=== PATIENT | male | born 1970 | race Two or more races ===

== ENCOUNTER 2016-08-19 17:17 | Emergency (ER) | payer MEDICARE, MEDICAID ==
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
[2016-08-19] MEDS ORDERED: HYDROmorphone 1 mg/mL 1mL Syr IVP STA (18:07)
[2016-08-19 18:22] LABS: % BASOPHILS 0.2 % (0.0-2.0); % EOSINOPHILS 0.2 % (0.0-5.0); % MONOCYTES 11.9 % (2.0-10.0); % NEUTROPHILS 64.7 % (40.0-80.0); HEMATOCRIT 38.9 % (39.0-49.0); HEMOGLOBIN 13.3 gm/dL (13.2-17.3); MEAN CELL VOLUME 81.6 fl (80-99); MEAN CORPUSCULAR HEMOGLOBIN 27.8 pg (26.0-30.0); MEAN CORPUSCULAR HGB CONC 34.1 pg (28.0-36.0); MEAN PLATELET VOLUME 7.2 fl; NEUTROPHILE ABSOLUTE 2.7 Th/cmm (1.8-8.0); PLATELET COUNT 182 Th/cmm (150-400); RED BLOOD COUNT 4.77 Mil/cmm (4.30-5.70); RED CELL DISTRIBUTION WIDTH 17.1 % (11.5-20.0); WHITE BLOOD COUNT 4.1 Th/cmm (4.8-10.8)
[2016-08-19] MEDS ORDERED: HYDROmorphone 1 mg/mL 1mL Syr ONE (18:27)
[2016-08-19 18:39] LABS: ALB/GLOB RATIO 1.1 (1.0-1.8); ALKALINE PHOSPHATASE 101 U/L (34-104); ANION GAP 8.5 (7.0-16.0); BILIRUBIN,TOTAL 0.4 mg/dL (0.3-1.0); BUN - UREA NITROGEN 20 mg/dL (7-25); BUN/CREATININE RATIO 18.2; CALCIUM SERUM 9.6 mg/dL (8.6-10.3); CARBON DIOXIDE 26.1 mEq/L (21.0-31.0); CHLORIDE 104 mEq/L (98-107); CREATININE - SERUM 1.1 mg/dL (0.7-1.3); GLUCOSE 80 mg/dL (70-105); POTASSIUM SERUM 3.6 mEq/L (3.5-5.1); SGOT 18 U/L (13-39); SGPT/ALT 18 U/L (7-52); SODIUM SERUM 135 mEq/L (136-145)
--- NOTE | 2016-08-20 16:45 | Diagnostic Imaging Report ---
Portable chest x-ray History: Cough Allowing for portable technique the heart size is normal. No focal pulmonary parenchymal processes. No hilar or mediastinal abnormalities. Impression: No acute abnormalities.
--- NOTE | 2016-08-20 16:50 | Diagnostic Imaging Report ---
Left humerus (3 views) HISTORY: Pain, prior surgery The exam demonstrates an orthopedic fixation plate and screws traversing the distal shaft humerus. Findings are associated with a transverse fracture with incomplete bony a new. Callus formation noted. IMPRESSION: 1. Surgical fixation associated with a fracture of the distal humerus shaft with incomplete bony union.
== END 2016-08-19 21:20 | disposition home or self-care (01) ==
LOC: ER 17:17
DX: G89.4 Chronic pain syndrome (principal); J20.9 Acute bronchitis, unspecified
CPT/HCPCS: 36415-UA; 71010-TC; 73060-TC-LT; 80053-TC; 85025-TC; 96374; J1170

== ENCOUNTER 2016-10-26 12:39 | Emergency (ER) | payer MEDICARE, MEDICAID ==
[2016-10-26 13:11] VITALS: BP 109/53
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
--- NOTE | 2016-10-26 13:37 | Diagnostic Imaging Report ---
Left shoulder 3 views Indication: Trauma Comparison: Left humerus x-rays on 08/19/2016 Findings: There is evidence of previous fracture fixation of the left midhumerus with interval surrounding callus formation. No evidence of an acute fracture or significant focal soft tissue swelling. Limited evaluation of the hardware demonstrates no gross hardware loosening. Mild degenerative changes are noted. Impression: Evidence of previous fracture fixation of the left humerus with surrounding healing and callus formation. No acute fracture is identified. Consider additional dedicated left humerus views, if indicated. In the setting of trauma, if clinical symptoms persist and there is continued concern for an occult fracture, follow up exams in 5-7 days is suggested.
== END 2016-10-26 13:30 | disposition home or self-care (01) ==
LOC: ER 12:39
DX: S40.012A Contusion of left shoulder, initial encounter (principal); W05.0XXA Fall from non-moving wheelchair, initial encounter; Y93.89 Activity, other specified; Y92.89 Other specified places as the place of occurrence of the external cause; Y99.8 Other external cause status
CPT/HCPCS: 73030-TC-LT; Z7502

== ENCOUNTER 2017-03-16 22:42 | Emergency (ER) | payer MEDICARE, MEDICAID ==
[2017-03-16 23:18] LABS: % BASOPHILS 0.8 % (0.0-2.0); % LYMPHOCYTES 37.6 % (20.0-50.0); % NEUTROPHILS 51.6 % (40.0-80.0); HEMATOCRIT 41.9 % (39.0-49.0); HEMOGLOBIN 14.1 gm/dL (13.2-17.3); MEAN CELL VOLUME 85.2 fl (80-99); MEAN CORPUSCULAR HEMOGLOBIN 28.6 pg (26.0-30.0); MEAN CORPUSCULAR HGB CONC 33.5 pg (28.0-36.0); MEAN PLATELET VOLUME 7.3 fl; NEUTROPHILE ABSOLUTE 3.3 Th/cmm (1.8-8.0); PLATELET COUNT 207 Th/cmm (150-400); RED BLOOD COUNT 4.92 Mil/cmm (4.30-5.70); RED CELL DISTRIBUTION WIDTH 14.3 % (11.5-20.0); WHITE BLOOD COUNT 6.5 Th/cmm (4.8-10.8)
[2017-03-16 23:36] LABS: ALB/GLOB RATIO 1.6 (1.0-1.8); ALKALINE PHOSPHATASE 97 U/L (34-104); ANION GAP 8.3 (7.0-16.0); BILIRUBIN,TOTAL 0.4 mg/dL (0.3-1.0); BUN - UREA NITROGEN 14 mg/dL (7-25); BUN/CREATININE RATIO 12.7; CALCIUM SERUM 9.3 mg/dL (8.6-10.3); CARBON DIOXIDE 23.5 mEq/L (21.0-31.0); CHLORIDE 104 mEq/L (98-107); CREATININE - SERUM 1.1 mg/dL (0.7-1.3); GLUCOSE 98 mg/dL (70-105); POTASSIUM SERUM 3.8 mEq/L (3.5-5.1); SGOT 20 U/L (13-39); SGPT/ALT 28 U/L (7-52); SODIUM SERUM 132 mEq/L (136-145)
[2017-03-16 23:56] LABS: URINE COLOR YELLOW
[2017-03-16 23:57] LABS: URINE BACTERIA FEW /hpf (NONE SEEN); URINE BILIRUBIN NEGATIVE (NEGATIVE); URINE BLOOD NEGATIVE (NEGATIVE); URINE EPITHELIAL CELLS MODERATE /lpf (FEW); URINE GLUCOSE (UA) NEGATIVE (NEGATIVE); URINE KETONE NEGATIVE (NEGATIVE); URINE PROTEIN NEGATIVE (NEGATIVE); URINE RBC 0-2 /hpf (0-5); URINE WBC 0-2 /hpf (0-5)
[2017-03-17 00:05] LABS: AMPHETAMINE URINE NEGATIVE (NEGATIVE); BARBITURATES URINE NEGATIVE (NEGATIVE); METHADONE URINE NEGATIVE (NEGATIVE)
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
== END 2017-03-17 00:15 | disposition home or self-care (01) ==
LOC: ER 22:42
DX: K52.9 Noninfective gastroenteritis and colitis, unspecified (principal); F17.200 Nicotine dependence, unspecified, uncomplicated
CPT/HCPCS: 36415-UA; 80053-TC; 80307; 80320-TC; 81001-TC; 84443-TC; 84484-TC; 85025-TC; Z7502

== ENCOUNTER 2017-06-03 16:50 | Emergency (ER) | payer MEDICARE, MEDICAID | END 2017-06-03 18:00 | disposition left against medical advice (07) | LOC: ER 16:50 | DX: R06.00 Dyspnea, unspecified (principal) ==

== ENCOUNTER 2017-09-12 12:40 | Emergency (ER) | payer MEDICARE, MEDICAID ==
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
== END 2017-09-12 13:30 | disposition home or self-care (01) ==
LOC: ER 12:40
DX: N34.2 Other urethritis (principal)
CPT/HCPCS: Z7502

== ENCOUNTER 2017-09-17 20:51 | Inpatient (IN) | payer MEDICARE, MEDICAID ==
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
[2017-09-17] MEDS ORDERED: Ipratropium Neb 0.5 mg/2.5 mL UD HHN STA (21:25)
[2017-09-17] MEDS ORDERED: Ipratropium Neb 0.5 mg/2.5 mL UD HHN ONE (21:49)
[2017-09-17 21:51] LABS: % BASOPHILS 0.3 % (0.0-2.0); % EOSINOPHILS 2.4 % (0.0-5.0); % LYMPHOCYTES 15.5 % (20.0-50.0); % MONOCYTES 4.6 % (2.0-10.0); % NEUTROPHILS 77.2 % (40.0-80.0); EOSINOPHILE ABSOLUTE 0.3 Th/cmm (0.1-0.4); HEMATOCRIT 43.7 % (41.0-60); HEMOGLOBIN 15.1 gm/dL (12-16); MEAN CELL VOLUME 84.4 fl (80-99); MEAN CORPUSCULAR HEMOGLOBIN 29.2 pg (26.0-30.0); MEAN CORPUSCULAR HGB CONC 34.6 pg (28.0-36.0); MEAN PLATELET VOLUME 7.7 fl; MONOCYTE ABSOLUTE 0.6 Th/cmm (0.3-1.0); NEUTROPHILE ABSOLUTE 9.8 Th/cmm (1.8-8.0); PLATELET COUNT 260 Th/cmm (150-400); RED BLOOD COUNT 5.18 Mil/cmm (4.30-5.70)
[2017-09-17 21:57] LABS: ALB/GLOB RATIO 1.3 (1.0-1.8); ALBUMIN 4.2 gm/dL (4.2-5.5); ALKALINE PHOSPHATASE 93 U/L (34-104); ANION GAP 8.8 (7.0-16.0); BILIRUBIN,TOTAL 0.6 mg/dL (0.3-1.0); BUN - UREA NITROGEN 11 mg/dL (7-25); CALCIUM SERUM 9.6 mg/dL (8.6-10.3); CHLORIDE 102 mEq/L (98-107); GFR AFRICAN-AMERICAN > 60.0 ml/min (>90); GFR NON AFRICAN-AMERICAN > 60.0 ml/min; GLUCOSE 125 mg/dL (70-105); POTASSIUM SERUM 3.8 mEq/L (3.5-5.1); SGOT 22 U/L (13-39); SGPT/ALT 37 U/L (7-52); SODIUM SERUM 130 mEq/L (136-145); TOTAL PROTEIN,SERUM 7.5 gm/dL (6.0-8.3)
[2017-09-17 22:05] LABS: WHITE BLOOD COUNT 12.7 Th/cmm (4.8-10.8)
[2017-09-17] MEDS ORDERED: Sodium Chloride 0.9% 1,000 ML IV ONE (22:06)
[2017-09-17] MEDS ORDERED: cefTRIAXone 1 GM in Sodium Chloride 0.9% 50 ML IV ONE (22:07)
[2017-09-17] MEDS ORDERED: Azithromycin 500 MG in Sodium Chloride 0.9% 250 ML IV ONE (22:08)
[2017-09-17 22:29] LABS: ALLEN TEST Positive; pH 7.44 (7.35-7.45)
[2017-09-18] MEDS: Ipratropium Neb 0.5 mg/2.5 mL UD HHN SCH ×6 (02:47→23:14)
[2017-09-18 04:04] VITALS: BP 121/75
[2017-09-18 07:29] LABS: % BASOPHILS 0.2 % (0.0-2.0); % EOSINOPHILS 5.4 % (0.0-5.0); % LYMPHOCYTES 22.5 % (20.0-50.0); % NEUTROPHILS 62.9 % (40.0-80.0); EOSINOPHILE ABSOLUTE 0.4 Th/cmm (0.1-0.4); HEMATOCRIT 39.9 % (41.0-60); HEMOGLOBIN 13.7 gm/dL (12-16); LYMPHOCYTE ABSOLUTE 1.8 Th/cmm (1.5-3.0); MEAN CELL VOLUME 84.7 fl (80-99); MEAN CORPUSCULAR HGB CONC 34.3 pg (28.0-36.0); MEAN PLATELET VOLUME 7.9 fl; MONOCYTE ABSOLUTE 0.7 Th/cmm (0.3-1.0); NEUTROPHILE ABSOLUTE 5.1 Th/cmm (1.8-8.0); PLATELET COUNT 217 Th/cmm (150-400); RED BLOOD COUNT 4.71 Mil/cmm (4.30-5.70); RED CELL DISTRIBUTION WIDTH 15.2 % (11.5-20.0)
[2017-09-18 07:45] LABS: ALB/GLOB RATIO 1.3 (1.0-1.8); ALBUMIN 3.8 gm/dL (4.2-5.5); ALKALINE PHOSPHATASE 84 U/L (34-104); BILIRUBIN,TOTAL 0.5 mg/dL (0.3-1.0); BUN - UREA NITROGEN 11 mg/dL (7-25); CALCIUM SERUM 9.2 mg/dL (8.6-10.3); CHLORIDE 107 mEq/L (98-107); CREATININE - SERUM 0.9 mg/dL (0.7-1.3); GFR AFRICAN-AMERICAN > 60.0 ml/min (>90); GFR NON AFRICAN-AMERICAN > 60.0 ml/min; GLUCOSE 105 mg/dL (70-105); SGOT 17 U/L (13-39); SGPT/ALT 30 U/L (7-52); SODIUM SERUM 136 mEq/L (136-145); TOTAL PROTEIN,SERUM 6.8 gm/dL (6.0-8.3)
--- NOTE | 2017-09-18 08:00 | Diagnostic Imaging Report ---
CHEST X-RAY: AP view INDICATION: Cough COMPARISON: 08/19/2016 FINDINGS: Right-sided axillary clips are noted. Mild increased interstitial lung markings are noted. There is no focal consolidation or pleural effusions The heart is normal in size. The osseous structures demonstrate no acute abnormalities. Small bone island of the right humeral head is noted IMPRESSION: Mild increased interstitial lung markings, nonspecific. No focal airspace consolidation identified. Postsurgical changes of the right axillary region.
[2017-09-18] MEDS ORDERED: Oxymetazoline 0.05% 15 mL Spray NS PRN (13:56)
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
[2017-09-18] MEDS: cefTRIAXone 2 GM in Sodium Chloride 0.9% 100 ML IV SCH (16:52)
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
[2017-09-18 19:16] LABS: INF A SCREEN NEG FOR INF A; INF B SCREEN NEG FOR INF B
[2017-09-18] MEDS: Azithromycin 500 MG in Sodium Chloride 0.9% 250 ML IV SCH (20:16)
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
[2017-09-19] MEDS: Ipratropium Neb 0.5 mg/2.5 mL UD HHN SCH ×5 (03:15→20:42)
--- NOTE | 2017-09-19 11:27 | Diagnostic Imaging Report ---
CT Chest without IV contrast HISTORY: Pneumonia COMPARISON: Chest x-ray performed on 09/17/2017. Technique: Axial images were obtained from the base of the neck to the upper abdomen without IV contrast. Reconstructions were made. Total DLP 340, CTD I 8.7 Findings: Evaluation of the mediastinum is limited due to lack of IV contrast. Few borderline prominent mediastinal lymph nodes are noted the largest to the left of the main pulmonary artery measuring 0.9 x 0.5 cm. Mild coronary artery atherosclerosis is noted. Heart size is normal. No pericardial effusion. Postsurgical changes of the right axillary region are noted. Evaluation of lung nunez demonstrate no focal consolidation or effusions. Minimal hypoventilatory atelectatic changes are noted. 3-mm nodular density is seen along the left major fissure (image 57, series 5). The upper abdomen demonstrates fatty infiltration of the liver. Minimal nonspecific bilateral perinephric inflammatory changes are noted. The osseous structures demonstrate no acute abnormalities. Mild scoliosis is noted. IMPRESSION: Minimal hypoventilatory changes of the lungs. No focal consolidation or effusions. 3 mm nodular density along the left major fissure probably due to old infectious or old inflammatory process. If indicated, follow up may be obtained Minimal coronary artery atherosclerotic vascular disease. Postsurgical changes of right axillary region, please correlate clinically. A few borderline prominent mediastinal lymph nodes, nonspecific. Hepatic steatosis.
--- NOTE | 2017-09-19 11:36 | General Progress Note ---
Subjective - Review of Systems Events since last encounter: c/o cough deneis sob ,cp Objective - Results Result Diagrams: 09/18/17 06:39 03 06:39 Recent Labs: Laboratory Last Values WBC 8.0 Th/cmm (4.8-10.8) 03 06:39 RBC 4.71 Mil/cmm (4.30-5.70) 09/18/17 06:39 Hgb 13.7 gm/dL (12-16) 09/18/17 06:39 Hct 39.9 % (41.0-60) L 09/18/17 06:39 MCV 84.7 fl (80-99) 09/18/17 06:39 MCH 29.0 pg (26.0-30.0) 09/18/17 06:39 MCHC Differential 34.3 pg (28.0-36.0) 09/18/17 06:39 RDW 15.2 % (11.5-20.0) 09/18/17 06:39 Plt Count 217 Th/cmm (150-400) 09/18/17 06:39 MPV 7.9 fl 09/18/17 06:39 Neutrophils % 62.9 % (40.0-80.0) 09/18/17 06:39 Lymphocytes % 22.5 % (20.0-50.0) 09/18/17 06:39 Monocytes % 9.0 % (2.0-10.0) 09/18/17 06:39 Eosinophils % 5.4 % (0.0-5.0) H 09/18/17 06:39 Basophils % 0.2 % (0.0-2.0) 09/18/17 06:39 Specimen Source arterial 09/17/17 21:23 Sample Site RB 09/17/17 21:23 pH 7.44 (7.35-7.45) 09/17/17 21:23 pCO2 38.0 mmHg (35.0-45.0) 09/17/17 21:23 pO2 52.0 mmHg (80.0-100.0) L 09/17/17 21:23 HCO3 26.0 mEq/L (20.0-26.0) 09/17/17 21:23 Base Excess 1.7 mEq/L (-3.0-3.0) 09/17/17 21:23 O2 Saturation 88.0 % (92.0-100.0) L 09/17/17 21:23 Guilherme Test Positive 09/17/17 21:23 Vent Rate N/A 09/17/17 21:23 Inspired O2 21 09/17/17 21:23 Tidal Volume N/A 09/17/17 21:23 PEEP N/A 09/17/17 21:23 Pressure (ins/psv/peep) N/A 09/17/17 21:23 Critical Value MM,[employer]PER 09/17/17 21:23 Sodium 136 mEq/L (136-145) 09/18/17 06:39 Potassium 4.0 mEq/L (3.5-5.1) 09/18/17 06:39 Chloride 107 mEq/L (98-107) 09/18/17 06:39 Carbon Dioxide 24.0 mEq/L (21.0-31.0) 09/18/17 06:39 Anion Gap 9.0 (7.0-16.0) 09/18/17 06:39 BUN 11 mg/dL (7-25) 09/18/17 06:39 Creatinine 0.9 mg/dL (0.7-1.3) 03 06:39 Est GFR ( Amer) > 60.0 ml/min (>90) 09/18/17 06:39 Est GFR (Non-Af Amer) > 60.0 ml/min 09/18/17 06:39 BUN/Creatinine Ratio 12.2 09/18/17 06:39 Glucose 105 mg/dL (70-105) 09/18/17 06:39 Whole Bld Lactic Acid 1.57 mmol/L (0.60-1.99) 09/17/17 21:55 Calcium 9.2 mg/dL (8.6-10.3) 09/18/17 06:39 Total Bilirubin 0.5 mg/dL (0.3-1.0) 09/18/17 06:39 AST 17 U/L (13-39) 09/18/17 06:39 ALT 30 U/L (7-52) 09/18/17 06:39 Alkaline Phosphatase 84 U/L (34-104) 09/18/17 06:39 Total Protein 6.8 gm/dL (6.0-8.3) 09/18/17 06:39 Albumin 3.8 gm/dL (4.2-5.5) L 09/18/17 06:39 Globulin 3.0 gm/dL 09/18/17 06:39 Albumin/Globulin Ratio 1.3 (1.0-1.8) 09/18/17 06:39 Influenza A (Rapid) NEG FOR INF A 09/18/17 13:45 Influenza B (Rapid) NEG FOR INF B 09/18/17 13:45 - Physical Exam Vitals and I&O: Vital Signs Temp 98.2 F 09/19/17 07:42 Pulse 104 09/19/17 08:12 Resp 18 09/19/17 08:12 BP 95/60 09/19/17 07:42 Pulse Ox 94 09/19/17 08:12 Intake & Output 09/18/17 09/19/17 09/19/17 18:59 06:59 18:59 Intake Total 1300 250 Output Total 800 Balance 500 250 Weight (lbs) 98.611 kg 97.976 kg Intake: Intake, IV Amount 100 250 Azithromycin 500 mg In 250 Sodium Chloride 0.9% 250 ml @ 250 mls/hr IV Q24HR [facility] Rx#:[id number] cefTRIAXone 2 gm In 100 Sodium Chloride 0.9% 100 ml @ 100 mls/hr IV Q24H [facility] Rx#:[id number] Oral 1200 Output: Urine 800 Other: # Bowel Movements 0 Active Medications: Current Medications Azithromycin 500 mg/ Sodium (Chloride) 250 mls @ 250 mls/hr IV Q24HR [facility] Stop: 11/17/17 20:59 Last Infusion: 09/18/17 21:20 Dose: Infused Ceftriaxone Sodium 2 gm/ (Sodium Chloride) 100 mls @ 100 mls/hr IV Q24H [facility] Stop: 11/17/17 14:59 Last Infusion: 09/18/17 17:55 Dose: Infused Ipratropium Avella (Atrovent Neb 0.5mg/2.5ml) 0.5 mg HHN Q4HRT [facility] Stop: 11/17/17 02:59 Last Admin: 09/19/17 11:15 Dose: 0.5 mg Loratadine (Claritin) 10 mg PO DAILY PRN PRN Reason: Allergy Symptoms Stop: 11/17/17 13:55 Methylprednisolone Sodium Succinate (Solu-Medrol) 60 mg IVP Q6HR KATE Stop: 11/17/17 17:59 Last Admin: 09/19/17 07:42 Dose: 60 mg Oxymetazoline HCl (Afrin) 1 spr NS Q12HR PRN PRN Reason: Nasal Congestion Stop: 10/02/17 13:55
[2017-09-19] MEDS: cefTRIAXone 2 GM in Sodium Chloride 0.9% 100 ML IV SCH (15:41)
[2017-09-19] MEDS: Hydrocodone/APAP 10 mg/325 mg Tab PO PRN (20:49)
[2017-09-19] MEDS: Azithromycin 500 MG in Sodium Chloride 0.9% 250 ML IV SCH (20:49)
[2017-09-20] MEDS: Ipratropium Neb 0.5 mg/2.5 mL UD HHN SCH ×6 (00:10→22:57)
[2017-09-20 06:02] LABS: HEMATOCRIT 42.8 % (41.0-60); HEMOGLOBIN 14.4 gm/dL (12-16); MEAN CELL VOLUME 85.8 fl (80-99); MEAN CORPUSCULAR HEMOGLOBIN 28.8 pg (26.0-30.0); MEAN CORPUSCULAR HGB CONC 33.6 pg (28.0-36.0); PLATELET COUNT 291 Th/cmm (150-400); RED BLOOD COUNT 4.99 Mil/cmm (4.30-5.70); RED CELL DISTRIBUTION WIDTH 15.3 % (11.5-20.0)
[2017-09-20 06:10] LABS: MANUAL DIFF REQUIRED? YES
[2017-09-20 06:20] LABS: ALB/GLOB RATIO 1.3 (1.0-1.8); ALBUMIN 4.1 gm/dL (4.2-5.5); ALKALINE PHOSPHATASE 87 U/L (34-104); ANION GAP 11.9 (7.0-16.0); BILIRUBIN,TOTAL 0.2 mg/dL (0.3-1.0); BUN - UREA NITROGEN 23 mg/dL (7-25); CALCIUM SERUM 9.4 mg/dL (8.6-10.3); CARBON DIOXIDE 21.1 mEq/L (21.0-31.0); CHLORIDE 106 mEq/L (98-107); CREATININE - SERUM 1.1 mg/dL (0.7-1.3); GFR AFRICAN-AMERICAN > 60.0 ml/min (>90); GFR NON AFRICAN-AMERICAN > 60.0 ml/min; GLUCOSE 254 mg/dL (70-105); SGOT 11 U/L (13-39); SGPT/ALT 27 U/L (7-52); SODIUM SERUM 135 mEq/L (136-145); TOTAL PROTEIN,SERUM 7.3 gm/dL (6.0-8.3)
[2017-09-20 06:39] LABS: BAND NEUTROPHILE 6 % (0-10); LYMPHOCYTE 12 % (20-50); MONOCYTE 4 % (2-10); NEUTROPHILS 78 % (40-80); TOTAL CELLS COUNTED 100
[2017-09-20] MEDS: Hydrocodone/APAP 10 mg/325 mg Tab PO PRN ×2 (09:50→22:15)
[2017-09-20] MEDS: cefTRIAXone 2 GM in Sodium Chloride 0.9% 100 ML IV SCH (14:29)
--- NOTE | 2017-09-20 17:48 | Internal Medicine Prog Note ---
Internal Medicine Subjective - Subjective Service Date: 09/20/17 Patient seen and examined:: with staff Patient is:: awake, verbal Patient Complaints of:: cough Per staff patient has:: no adverse event, tolerating meds Internal Medicine Objective - Results Result Diagrams: 09/20/17 05:21 09/20/17 05:21 Recent Labs: Laboratory Last Values WBC 19.0 Th/cmm (4.8-10.8) H 09/20/17 05:21 RBC 4.99 Mil/cmm (4.30-5.70) 09/20/17 05:21 Hgb 14.4 gm/dL (12-16) 09/20/17 05:21 Hct 42.8 % (41.0-60) 09/20/17 05:21 MCV 85.8 fl (80-99) 09/20/17 05:21 MCH 28.8 pg (26.0-30.0) 09/20/17 05:21 MCHC Differential 33.6 pg (28.0-36.0) 09/20/17 05:21 RDW 15.3 % (11.5-20.0) 09/20/17 05:21 Plt Count 291 Th/cmm (150-400) 09/20/17 05:21 MPV 8.0 fl 09/20/17 05:21 Neutrophils % 62.9 % (40.0-80.0) 09/18/17 06:39 Band Neutrophils % 6 % (0-10) 09/20/17 05:21 Lymphocytes % 22.5 % (20.0-50.0) 09/18/17 06:39 Monocytes % 9.0 % (2.0-10.0) 09/18/17 06:39 Eosinophils % 5.4 % (0.0-5.0) H 09/18/17 06:39 Basophils % 0.2 % (0.0-2.0) 09/18/17 06:39 Neutrophils (Manual) 78 % (40-80) 09/20/17 05:21 Lymphocytes 12 % (20-50) L 09/20/17 05:21 Monocytes 4 % (2-10) 09/20/17 05:21 Specimen Source arterial 09/17/17 21:23 Sample Site RB 09/17/17 21:23 pH 7.44 (7.35-7.45) 09/17/17 21:23 pCO2 38.0 mmHg (35.0-45.0) 09/17/17 21:23 pO2 52.0 mmHg (80.0-100.0) L 09/17/17 21:23 HCO3 26.0 mEq/L (20.0-26.0) 09/17/17 21:23 Base Excess 1.7 mEq/L (-3.0-3.0) 09/17/17 21:23 O2 Saturation 88.0 % (92.0-100.0) L 09/17/17 21:23 Guilherme Test Positive 09/17/17 21:23 Vent Rate N/A 09/17/17 21:23 Inspired O2 21 09/17/17 21:23 Tidal Volume N/A 09/17/17 21:23 PEEP N/A 09/17/17 21:23 Pressure (ins/psv/peep) N/A 09/17/17 21:23 Critical Value MM,PRODUCT MARKETING INTERN 09/17/17 21:23 Sodium 135 mEq/L (136-145) L 09/20/17 05:21 Potassium 4.0 mEq/L (3.5-5.1) 09/20/17 05:21 Chloride 106 mEq/L (98-107) 09/20/17 05:21 Carbon Dioxide 21.1 mEq/L (21.0-31.0) 09/20/17 05:21 Anion Gap 11.9 (7.0-16.0) 09/20/17 05:21 BUN 23 mg/dL (7-25) 09/20/17 05:21 Creatinine 1.1 mg/dL (0.7-1.3) 09/20/17 05:21 Est GFR ( Amer) > 60.0 ml/min (>90) 09/20/17 05:21 Est GFR (Non-Af Amer) > 60.0 ml/min 09/20/17 05:21 BUN/Creatinine Ratio 20.9 09/20/17 05:21 Glucose 254 mg/dL (70-105) H 09/20/17 05:21 Whole Bld Lactic Acid 1.57 mmol/L (0.60-1.99) 09/17/17 21:55 Calcium 9.4 mg/dL (8.6-10.3) 09/20/17 05:21 Total Bilirubin 0.2 mg/dL (0.3-1.0) L 09/20/17 05:21 AST 11 U/L (13-39) L 09/20/17 05:21 ALT 27 U/L (7-52) 09/20/17 05:21 Alkaline Phosphatase 87 U/L (34-104) 09/20/17 05:21 Total Protein 7.3 gm/dL (6.0-8.3) 09/20/17 05:21 Albumin 4.1 gm/dL (4.2-5.5) L 09/20/17 05:21 Globulin 3.2 gm/dL 09/20/17 05:21 Albumin/Globulin Ratio 1.3 (1.0-1.8) 09/20/17 05:21 Influenza A (Rapid) NEG FOR INF A 09/18/17 13:45 Influenza B (Rapid) NEG FOR INF B 09/18/17 13:45 Ur L.pneumophila Ag Negative (Negative) 09/18/17 21:10 - Physical Exam Vitals and I&O: Vital Signs Temp 97.8 F 09/20/17 16:04 Pulse 110 09/20/17 16:04 Resp 18 09/20/17 16:04 BP 110/72 09/20/17 16:04 Pulse Ox 99 09/20/17 16:04 Intake & Output 09/19/17 09/20/17 09/20/17 18:59 06:59 18:59 Intake Total 1300 100 Balance 1300 100 Weight (lbs) 216 lb Intake: Intake, IV Amount 100 100 cefTRIAXone 2 gm In 100 100 Sodium Chloride 0.9% 100 ml @ 100 mls/hr IV Q24H [facility] Rx#:[id number] Oral 1200 Active Medications: Current Medications Acetaminophen/Hydrocodone Bitart ([place] 10 Mg/325 Mg) 1 tab PO Q4H PRN PRN Reason: Pain (Moderate) Stop: 11/18/17 19:04 Last Admin: 09/20/17 09:50 Dose: 1 tab Azithromycin 500 mg/ Sodium (Chloride) 250 mls @ 250 mls/hr IV Q24HR [facility] Stop: 11/17/17 20:59 Last Admin: 09/19/17 20:49 Dose: 250 mls/hr Ceftriaxone Sodium 2 gm/ (Sodium Chloride) 100 mls @ 100 mls/hr IV Q24H [facility] Stop: 11/17/17 14:59 Last Infusion: 09/20/17 15:29 Dose: Infused Ipratropium [place] (Atrovent Neb 0.5mg/2.5ml) 0.5 mg HHN Q4HRT [facility] Stop: 11/17/17 02:59 Last Admin: 09/20/17 10:55 Dose: 0.5 mg Loratadine (Claritin) 10 mg PO DAILY PRN PRN Reason: Allergy Symptoms Stop: 11/17/17 13:55 Methylprednisolone Sodium Succinate (Solu-Medrol) 40 mg IVP Q12HR [facility] Stop: 11/19/17 20:59 Oxymetazoline HCl (Afrin) 1 spr NS Q12HR PRN PRN Reason: Nasal Congestion Stop: 10/02/17 13:55 General: alert HEENT: NC/AT, PERRLA Neck: Supple Lungs: CTAB Cardiovascular: RRR, Normal S1, Normal S2, without murmur Abdomen: soft, non-tender, non-distended Extremities: clear Neurological: alert Internal Medicine Assmt/Plan - Assessment Assessment: bronchitis leukocytosis hyponatremia possible pna left aka - Plan Plan: continue ivabx supplemental oxygen and inhalation treatments continue current orders
[2017-09-20 18:29] LABS: A1C % 5.5 % (4.0-6.0)
[2017-09-20] MEDS: Azithromycin 500 MG in Sodium Chloride 0.9% 250 ML IV SCH (22:00)
[2017-09-20] MEDS: methylPREDNISolone SS 40 mg Vial IVP SCH (22:30)
[2017-09-21] MEDS: Ipratropium Neb 0.5 mg/2.5 mL UD HHN SCH ×6 (02:23→23:06)
[2017-09-21] MEDS: Hydrocodone/APAP 10 mg/325 mg Tab PO PRN ×4 (02:44→21:31)
[2017-09-21] MEDS: methylPREDNISolone SS 40 mg Vial IVP SCH ×2 (09:11→21:30)
--- NOTE | 2017-09-21 12:14 | Infectious Disease Prog Note ---
Infectious Disease Subjective - Review of Systems Service Date: 09/21/17 Subjective: There is no new change, there is no fever. Infectious Disease Objective - Results Result Diagrams: 09/20/17 05:21 09/20/17 05:21 Recent Labs: Laboratory Last Values WBC 19.0 Th/cmm (4.8-10.8) H 09/20/17 05:21 RBC 4.99 Mil/cmm (4.30-5.70) 09/20/17 05:21 Hgb 14.4 gm/dL (12-16) 09/20/17 05:21 Hct 42.8 % (41.0-60) 09/20/17 05:21 MCV 85.8 fl (80-99) 09/20/17 05:21 MCH 28.8 pg (26.0-30.0) 09/20/17 05:21 MCHC Differential 33.6 pg (28.0-36.0) 09/20/17 05:21 RDW 15.3 % (11.5-20.0) 09/20/17 05:21 Plt Count 291 Th/cmm (150-400) 09/20/17 05:21 MPV 8.0 fl 09/20/17 05:21 Neutrophils % 62.9 % (40.0-80.0) 09/18/17 06:39 Band Neutrophils % 6 % (0-10) 09/20/17 05:21 Lymphocytes % 22.5 % (20.0-50.0) 09/18/17 06:39 Monocytes % 9.0 % (2.0-10.0) 09/18/17 06:39 Eosinophils % 5.4 % (0.0-5.0) H 09/18/17 06:39 Basophils % 0.2 % (0.0-2.0) 09/18/17 06:39 Neutrophils (Manual) 78 % (40-80) 09/20/17 05:21 Lymphocytes 12 % (20-50) L 09/20/17 05:21 Monocytes 4 % (2-10) 09/20/17 05:21 Specimen Source arterial 09/17/17 21:23 Sample Site RB 09/17/17 21:23 pH 7.44 (7.35-7.45) 09/17/17 21:23 pCO2 38.0 mmHg (35.0-45.0) 09/17/17 21:23 pO2 52.0 mmHg (80.0-100.0) L 09/17/17 21:23 HCO3 26.0 mEq/L (20.0-26.0) 09/17/17 21:23 Base Excess 1.7 mEq/L (-3.0-3.0) 09/17/17 21:23 O2 Saturation 88.0 % (92.0-100.0) L 09/17/17 21:23 Guilherme Test Positive 09/17/17 21:23 Vent Rate N/A 09/17/17 21:23 Inspired O2 21 09/17/17 21:23 Tidal Volume N/A 09/17/17 21:23 PEEP N/A 09/17/17 21:23 Pressure (ins/psv/peep) N/A 09/17/17 21:23 Critical Value MM,INSTRUMENT INSPECTOR 09/17/17 21:23 Sodium 135 mEq/L (136-145) L 09/20/17 05:21 Potassium 4.0 mEq/L (3.5-5.1) 09/20/17 05:21 Chloride 106 mEq/L (98-107) 09/20/17 05:21 Carbon Dioxide 21.1 mEq/L (21.0-31.0) 09/20/17 05:21 Anion Gap 11.9 (7.0-16.0) 09/20/17 05:21 BUN 23 mg/dL (7-25) 09/20/17 05:21 Creatinine 1.1 mg/dL (0.7-1.3) 09/20/17 05:21 Est GFR ( Amer) > 60.0 ml/min (>90) 09/20/17 05:21 Est GFR (Non-Af Amer) > 60.0 ml/min 09/20/17 05:21 BUN/Creatinine Ratio 20.9 09/20/17 05:21 Glucose 254 mg/dL (70-105) H 09/20/17 05:21 Hemoglobin A1c % 5.5 % (4.0-6.0) 09/20/17 06:10 Whole Bld Lactic Acid 1.57 mmol/L (0.60-1.99) 09/17/17 21:55 Calcium 9.4 mg/dL (8.6-10.3) 09/20/17 05:21 Total Bilirubin 0.2 mg/dL (0.3-1.0) L 09/20/17 05:21 AST 11 U/L (13-39) L 09/20/17 05:21 ALT 27 U/L (7-52) 09/20/17 05:21 Alkaline Phosphatase 87 U/L (34-104) 09/20/17 05:21 Total Protein 7.3 gm/dL (6.0-8.3) 09/20/17 05:21 Albumin 4.1 gm/dL (4.2-5.5) L 09/20/17 05:21 Globulin 3.2 gm/dL 09/20/17 05:21 Albumin/Globulin Ratio 1.3 (1.0-1.8) 09/20/17 05:21 Influenza A (Rapid) NEG FOR INF A 09/18/17 13:45 Influenza B (Rapid) NEG FOR INF B 09/18/17 13:45 Ur L.pneumophila Ag Negative (Negative) 09/18/17 21:10 - Physical Exam Vitals and I&O: Vital Signs Temp 98.4 F 09/21/17 08:00 Pulse 100 09/21/17 11:30 Resp 20 09/21/17 11:30 BP 132/86 09/21/17 08:00 Pulse Ox 92 09/21/17 11:30 Intake & Output 09/20/17 09/21/17 09/21/17 18:59 06:59 18:59 Intake Total 100 1000 Balance 100 1000 Weight (lbs) 97.976 kg Intake: Intake, IV Amount 100 cefTRIAXone 2 gm In 100 Sodium Chloride 0.9% 100 ml @ 100 mls/hr IV Q24H [facility] Rx#:[id number] Oral 1000 Active Medications: Current Medications Acetaminophen/Hydrocodone Bitart ([place] 10 Mg/325 Mg) 1 tab PO Q4H PRN PRN Reason: Pain (Moderate) Stop: 11/18/17 19:04 Last Admin: 09/21/17 09:12 Dose: 1 tab Azithromycin 500 mg/ Sodium (Chloride) 250 mls @ 250 mls/hr IV Q24HR [facility] Stop: 11/17/17 20:59 Last Admin: 09/20/17 22:00 Dose: 250 mls/hr Ceftriaxone Sodium 2 gm/ (Sodium Chloride) 100 mls @ 100 mls/hr IV Q24H [facility] Stop: 11/17/17 14:59 Last Infusion: 09/20/17 15:29 Dose: Infused Ipratropium [place] (Atrovent Neb 0.5mg/2.5ml) 0.5 mg HHN Q4HRT [facility] Stop: 11/17/17 02:59 Last Admin: 09/21/17 11:28 Dose: 0.5 mg Loratadine (Claritin) 10 mg PO DAILY PRN PRN Reason: Allergy Symptoms Stop: 11/17/17 13:55 Methylprednisolone Sodium Succinate (Solu-Medrol) 40 mg IVP Q12HR [facility] Stop: 11/19/17 20:59 Last Admin: 09/21/17 09:11 Dose: 40 mg Oxymetazoline HCl (Afrin) 1 spr NS Q12HR PRN PRN Reason: Nasal Congestion Stop: 10/02/17 13:55 General: no acute distress, well developed, well nourished HEENT: atraumatic, normocephalic, PERRLA Neck: supple, no thyromegaly, no lymphadenopathy Cardiovascular: S1S2, regular Lungs: clear to auscultation bilaterally, clear to percussion Abdomen: soft, no tender, no distended Extremities: no cyanosis, no clubbing, no edema Neurological: awake, alert, oriented, CN 2-12 intact Skin: intact Infectious Disease Assmt/Plan - Assessment Assessment: 1. Cough and shortness breath improving, likely he has bronchitis. CT scan of the chest revealed no pneumonia or infiltrate. 2. h/o HSCT. 3. h/o Lymphoma. 4. Leukocytosis. Likely 2/2 steroids. - Plan Plan: continue levaquin, will dc ceftriaxone. If leukocytosis comed to normal tomorrow, may dc antibiotics.
[2017-09-21] MEDS: cefTRIAXone 2 GM in Sodium Chloride 0.9% 100 ML IV SCH (14:17)
[2017-09-21] MEDS: Azithromycin 500 MG in Sodium Chloride 0.9% 250 ML IV SCH (21:30)
--- NOTE | 2017-09-22 00:06 | Progress Notes ---
DATE: 09/21/2017 SUBJECTIVE: The patient was seen in his room. The patient is asleep, but easily arousable, otherwise the patient appears to be in no acute distress. Denies any pain or discomfort. OBJECTIVE: HEENT: Head is atraumatic and normocephalic. Eyes: Bilateral conjunctivae are clear. Bilateral pupils are equally round and reactive. NECK: Supple. No JVD. CARDIOVASCULAR: S1 and S2, without murmur. PULMONARY: Clear to auscultation. GASTROINTESTINAL: Soft and nontender without guarding. Positive bowel sounds. MUSCULOSKELETAL: No clubbing, no cyanosis. The patient has a left above knee amputation. ASSESSMENT: 1. Bronchitis. 2. Possible pneumonia. 3. Left above knee amputation. 4. Hyponatremia. PLAN: We will keep the patient inpatient med-surg unit. Continue antibiotics. Treatment plans were discussed with the patient's nurse. Treatment plans were discussed with Dr. Encarnacion. JOB# [id number]
[2017-09-22] MEDS: Hydrocodone/APAP 10 mg/325 mg Tab PO PRN ×3 (03:21→20:32)
[2017-09-22] MEDS: Ipratropium Neb 0.5 mg/2.5 mL UD HHN SCH ×6 (03:30→23:10)
[2017-09-22 06:56] LABS: % BASOPHILS 0.7 % (0.0-2.0); % EOSINOPHILS 0.1 % (0.0-5.0); % LYMPHOCYTES 13.7 % (20.0-50.0); % MONOCYTES 8.3 % (2.0-10.0); % NEUTROPHILS 77.2 % (40.0-80.0); BASOPHILE ABSOLUTE 0.1 Th/cumm (0-0.2); HEMATOCRIT 42.9 % (41.0-60); HEMOGLOBIN 14.4 gm/dL (12-16); LYMPHOCYTE ABSOLUTE 2.5 Th/cmm (1.5-3.0); MEAN CELL VOLUME 85.6 fl (80-99); MEAN CORPUSCULAR HEMOGLOBIN 28.7 pg (26.0-30.0); MEAN CORPUSCULAR HGB CONC 33.6 pg (28.0-36.0); MEAN PLATELET VOLUME 7.9 fl; MONOCYTE ABSOLUTE 1.5 Th/cmm (0.3-1.0); NEUTROPHILE ABSOLUTE 13.8 Th/cmm (1.8-8.0); PLATELET COUNT 252 Th/cmm (150-400); RED BLOOD COUNT 5.02 Mil/cmm (4.30-5.70)
[2017-09-22 07:08] LABS: ALB/GLOB RATIO 1.4 (1.0-1.8); ALBUMIN 3.8 gm/dL (4.2-5.5); ALKALINE PHOSPHATASE 73 U/L (34-104); BILIRUBIN,TOTAL 0.3 mg/dL (0.3-1.0); BUN - UREA NITROGEN 21 mg/dL (7-25); CALCIUM SERUM 8.9 mg/dL (8.6-10.3); CARBON DIOXIDE 22.3 mEq/L (21.0-31.0); CHLORIDE 106 mEq/L (98-107); CREATININE - SERUM 0.8 mg/dL (0.7-1.3); GFR AFRICAN-AMERICAN > 60.0 ml/min (>90); GFR NON AFRICAN-AMERICAN > 60.0 ml/min; GLUCOSE 202 mg/dL (70-105); POTASSIUM SERUM 4.3 mEq/L (3.5-5.1); SGOT 12 U/L (13-39); SGPT/ALT 20 U/L (7-52); SODIUM SERUM 132 mEq/L (136-145); TOTAL PROTEIN,SERUM 6.5 gm/dL (6.0-8.3)
[2017-09-22 07:10] LABS: WHITE BLOOD COUNT 17.9 Th/cmm (4.8-10.8)
[2017-09-22] MEDS: methylPREDNISolone SS 40 mg Vial IVP SCH (09:44)
--- NOTE | 2017-09-22 10:09 | General Progress Note ---
Subjective - Review of Systems Events since last encounter: no fever no distress Objective - Results Result Diagrams: 09/22/17 06:28 09/22/17 06:28 Recent Labs: Laboratory Last Values WBC 17.9 Th/cmm (4.8-10.8) H 09/22/17 06:28 RBC 5.02 Mil/cmm (4.30-5.70) 09/22/17 06:28 Hgb 14.4 gm/dL (12-16) 09/22/17 06:28 Hct 42.9 % (41.0-60) 09/22/17 06:28 MCV 85.6 fl (80-99) 09/22/17 06:28 MCH 28.7 pg (26.0-30.0) 09/22/17 06:28 MCHC Differential 33.6 pg (28.0-36.0) 09/22/17 06: RDW 15.0 % (11.5-20.0) 09/22/17 06:28 Plt Count 252 Th/cmm (150-400) 09/22/17 06:28 MPV 7.9 fl 09/22/17 06:28 Neutrophils % 77.2 % (40.0-80.0) 09/22/17 06:28 Band Neutrophils % 6 % (0-10) 09/20/17 05:21 Lymphocytes % 13.7 % (20.0-50.0) L 09/22/17 06:28 Monocytes % 8.3 % (2.0-10.0) 09/22/17 06:28 Eosinophils % 0.1 % (0.0-5.0) 09/22/17 06:28 Basophils % 0.7 % (0.0-2.0) 09/22/17 06:28 Neutrophils (Manual) 78 % (40-80) 09/20/17 05:21 Lymphocytes 12 % (20-50) L 09/20/17 05:21 Monocytes 4 % (2-10) 09/20/17 05:21 Specimen Source arterial 09/17/17 21:23 Sample Site RB 09/17/17 21:23 pH 7.44 (7.35-7.45) 09/17/17 21:23 pCO2 38.0 mmHg (35.0-45.0) 09/17/17 21:23 pO2 52.0 mmHg (80.0-100.0) L 09/17/17 21: HCO3 26.0 mEq/L (20.0-26.0) 09/17/17: Base Excess 1.7 mEq/L (-3.0-3.0) 09/17/17: O2 Saturation 88.0 % (92.0-100.0) L 09/17/17 21: Guilherme Test Positive 09/17/17 21: Vent Rate N/A 09/17/17 21:23 Inspired O2 21 09/17/17 21: Tidal Volume N/A 09/17/17 21: PEEP N/A 09/17/17: Pressure (ins/psv/peep) N/A 09/17/17: Critical Value MM,WRAPPING MACHINE OPERATOR 09/17/17: Sodium 132 mEq/L (136-145) L 09/22/17 06:28 Potassium 4.3 mEq/L (3.5-5.1) 09/22/17: Chloride 106 mEq/L (98-107) 09/22/17 06: Carbon Dioxide 22.3 mEq/L (21.0-31.0) 09/22/17:28 Anion Gap 8.0 (7.0-16.0) 09/22/17: BUN 21 mg/dL (7-25) 09/22/17: Creatinine 0.8 mg/dL (0.7-1.3) 09/22/17 06:28 Est GFR ( Amer) > 60.0 ml/min (>90) 09/22/17 06: Est GFR (Non-Af Amer) > 60.0 ml/min 09/22/17 06:28 BUN/Creatinine Ratio 26.3 09/22/17: Glucose 202 mg/dL (70-105) H 09/22/17:28 Hemoglobin A1c % 5.5 % (4.0-6.0) 09/20/17 06:10 Whole Bld Lactic Acid 1.57 mmol/L (0.60-1.99) 09/17/17 21:55 Calcium 8.9 mg/dL (8.6-10.3) 09/22/17 06:28 Total Bilirubin 0.3 mg/dL (0.3-1.0) 09/22/17 06:28 AST 12 U/L (13-39) L 09/22/17 06:28 ALT 20 U/L (7-52) 09/22/17 06:28 Alkaline Phosphatase 73 U/L (34-104) 09/22/17 06:28 Total Protein 6.5 gm/dL (6.0-8.3) 09/22/17 06:28 Albumin 3.8 gm/dL (4.2-5.5) L 09/22/17 06:28 Globulin 2.7 gm/dL 09/22/17 06:28 Albumin/Globulin Ratio 1.4 (1.0-1.8) 09/22/17 06:28 Influenza A (Rapid) NEG FOR INF A 09/18/17 13:45 Influenza B (Rapid) NEG FOR INF B 09/18/17 13:45 Ur L.pneumophila Ag Negative (Negative) 09/18/17 21:10 - Physical Exam Vitals and I&O: Vital Signs Temp 97.7 F 09/22/17 04:00 Pulse 86 09/22/17 07:30 Resp 20 09/22/17 07:30 BP 118/82 09/22/17 04:00 Pulse Ox 93 09/22/17 07:30 Intake & Output 09/21/17 09/22/17 09/22/17 17:59 06:59 18:59 Intake Total Balance Weight (lbs) Intake: Oral Other: # Voids Active Medications: Current Medications Acetaminophen/Hydrocodone Bitart ([place] 10 Mg/325 Mg) 1 tab PO Q4H PRN PRN Reason: Pain (Moderate) Stop: 11/18/17 19:04 Last Admin: 09/22/17 03:21 Dose: 1 tab Azithromycin 500 mg/ Sodium (Chloride) 250 mls @ 250 mls/hr IV Q24HR [facility] Stop: 11/17/17 20:59 Last Admin: 09/21/17 21:30 Dose: 250 mls/hr Ceftriaxone Sodium 2 gm/ (Sodium Chloride) 100 mls @ 100 mls/hr IV Q24H [facility] Stop: 11/17/17 14:59 Last Admin: 09/21/17 14:17 Dose: 100 mls/hr Ipratropium [place] (Atrovent Neb 0.5mg/2.5ml) 0.5 mg HHN Q4HRT [facility] Stop: 11/17/17 02:59 Last Admin: 09/22/17 07:30 Dose: Not Given Loratadine (Claritin) 10 mg PO DAILY PRN PRN Reason: Allergy Symptoms Stop: 11/17/17 13:55 Methylprednisolone Sodium Succinate (Solu-Medrol) 20 mg IVP Q12HR [facility] Stop: 11/20/17 14:49 Last Admin: 09/22/17 09:44 Dose: 20 mg Oxymetazoline HCl (Afrin) 1 spr NS Q12HR PRN PRN Reason: Nasal Congestion Stop: 10/02/17 13:55
[2017-09-22] MEDS: cefTRIAXone 2 GM in Sodium Chloride 0.9% 100 ML IV SCH (14:56)
[2017-09-22] MEDS: Azithromycin 500 MG in Sodium Chloride 0.9% 250 ML IV SCH (20:31)
--- NOTE | 2017-09-22 23:34 | Infectious Disease Prog Note ---
Infectious Disease Subjective - Review of Systems Service Date: 09/22/17 Subjective: There is no new change, there is no fever. Infectious Disease Objective - Results Result Diagrams: 09/23/17 05:50 09/22/17 06:28 Recent Labs: Laboratory Last Values WBC 17.9 Th/cmm (4.8-10.8) H 09/22/17 06:28 RBC 5.02 Mil/cmm (4.30-5.70) 09/22/17 06:28 Hgb 14.4 gm/dL (12-16) 09/22/17 06:28 Hct 42.9 % (41.0-60) 09/22/17 06:28 MCV 85.6 fl (80-99) 09/22/17 06:28 MCH 28.7 pg (26.0-30.0) 09/22/17 06:28 MCHC Differential 33.6 pg (28.0-36.0) 09/22/17 06:28 RDW 15.0 % (11.5-20.0) 09/22/17 06:28 Plt Count 252 Th/cmm (150-400) 09/22/17 06:28 MPV 7.9 fl 09/22/17 06:28 Neutrophils % 77.2 % (40.0-80.0) 09/22/17 06:28 Band Neutrophils % 6 % (0-10) 09/20/17 05:21 Lymphocytes % 13.7 % (20.0-50.0) L 09/22/17 06:28 Monocytes % 8.3 % (2.0-10.0) 09/22/17 06:28 Eosinophils % 0.1 % (0.0-5.0) 09/22/17 06:28 Basophils % 0.7 % (0.0-2.0) 09/22/17 06:28 Neutrophils (Manual) 78 % (40-80) 09/20/17 05:21 Lymphocytes 12 % (20-50) L 09/20/17 05:21 Monocytes 4 % (2-10) 09/20/17 05:21 Specimen Source arterial 09/17/17 21:23 Sample Site RB 09/17/17 21:23 pH 7.44 (7.35-7.45) 09/17/17 21:23 pCO2 38.0 mmHg (35.0-45.0) 09/17/17: pO2 52.0 mmHg (80.0-100.0) L 09/17/17: HCO3 26.0 mEq/L (20.0-26.0) 09/17/17: Base Excess 1.7 mEq/L (-3.0-3.0) 09/17/17: O2 Saturation 88.0 % (92.0-100.0) L 09/17/17: Guilherme Test Positive 09/17/17: Vent Rate N/A 09/17/17: Inspired O2 21 09/17/17: Tidal Volume N/A 09/17/17: PEEP N/A 09/17/17: Pressure (ins/psv/peep) N/A 09/17/17: Critical Value MM,DYE ROOM HELPER 09/17/17: Sodium 132 mEq/L (136-145) L 09/22/17: Potassium 4.3 mEq/L (3.5-5.1) 09/22/17: Chloride 106 mEq/L (98-107) 09/22/17: Carbon Dioxide 22.3 mEq/L (21.0-31.0) 09/22/17 Anion Gap 8.0 (7.0-16.0) 09/22/17: BUN 21 mg/dL (7-25) 09/22/17: Creatinine 0.8 mg/dL (0.7-1.3) 09/22/17: Est GFR ( Amer) > 60.0 ml/min (>90) 09/22/17 Est GFR (Non-Af Amer) > 60.0 ml/min 09/22/17: BUN/Creatinine Ratio 26.3 09/22/17: Glucose 202 mg/dL (70-105) H 09/22/17: Hemoglobin A1c % 5.5 % (4.0-6.0) 09/20/17 06:10 Whole Bld Lactic Acid 1.57 mmol/L (0.60-1.99) 09/17/17 21:55 Calcium 8.9 mg/dL (8.6-10.3) 09/22/17 06:28 Total Bilirubin 0.3 mg/dL (0.3-1.0) 09/22/17 06:28 AST 12 U/L (13-39) L 09/22/17 06:28 ALT 20 U/L (7-52) 09/22/17 06:28 Alkaline Phosphatase 73 U/L (34-104) 09/22/17 06:28 Total Protein 6.5 gm/dL (6.0-8.3) 09/22/17 06:28 Albumin 3.8 gm/dL (4.2-5.5) L 09/22/17 06:28 Globulin 2.7 gm/dL 09/22/17 06:28 Albumin/Globulin Ratio 1.4 (1.0-1.8) 09/22/17 06:28 Influenza A (Rapid) NEG FOR INF A 09/18/17 13:45 Influenza B (Rapid) NEG FOR INF B 09/18/17 13:45 Ur L.pneumophila Ag Negative (Negative) 09/18/17 21:10 - Physical Exam Vitals and I&O: Vital Signs Temp 97.6 F 09/22/17 20:00 Pulse 94 09/22/17 23:14 Resp 20 09/22/17 23:14 BP 124/85 09/22/17 20:00 Pulse Ox 97 09/22/17 23:14 Intake & Output 09/22/17 09/22/17 09/23/17 06:59 18:59 06:59 Intake Total 1000 Balance 1000 Weight (lbs) 98.203 kg Intake: Intake, IV Amount Azithromycin 500 mg In Sodium Chloride 0.9% 250 ml @ 250 mls/hr IV Q24HR [facility] Rx#:[id number] Oral 1000 Other: # Voids 3 # Bowel Movements 1 Stool Characteristics Soft Formed Active Medications: Current Medications Acetaminophen/Hydrocodone Bitart ([place] 10 Mg/325 Mg) 1 tab PO Q4H PRN PRN Reason: Pain (Moderate) Stop: 11/18/17 19:04 Last Admin: 09/22/17 20:32 Dose: 1 tab Azithromycin 500 mg/ Sodium (Chloride) 250 mls @ 250 mls/hr IV Q24HR [facility] Stop: 11/17/17 20:59 Last Admin: 09/22/17 20:31 Dose: 250 mls/hr Ceftriaxone Sodium 2 gm/ (Sodium Chloride) 100 mls @ 100 mls/hr IV Q24H [facility] Stop: 11/17/17 14:59 Last Admin: 09/22/17 14:56 Dose: 100 mls/hr Ipratropium [place] (Atrovent Neb 0.5mg/2.5ml) 0.5 mg HHN Q4HRT [facility] Stop: 11/17/17 02:59 Last Admin: 09/22/17 23:10 Dose: 0.5 mg Loratadine (Claritin) 10 mg PO DAILY PRN PRN Reason: Allergy Symptoms Stop: 11/17/17 13:55 Oxymetazoline HCl (Afrin) 1 spr NS Q12HR PRN PRN Reason: Nasal Congestion Stop: 10/02/17 13:55 Prednisone (Deltasone) 10 mg PO DAILY [facility] Stop: 11/22/17 08:59 General: no acute distress, well developed, well nourished HEENT: atraumatic, normocephalic, PERRLA Neck: supple, no thyromegaly Cardiovascular: S1S2, regular Lungs: clear to auscultation bilaterally, clear to percussion Abdomen: soft, no tender, no distended Extremities: no cyanosis, no clubbing, no edema Neurological: awake, alert, oriented Skin: intact Infectious Disease Assmt/Plan - Assessment Assessment: 1. Cough and shortness breath improved, likely he has bronchitis. CT scan of the chest revealed no pneumonia or infiltrate. 2. h/o HSCT. 3. h/o Lymphoma. 4. Leukocytosis. Likely 2/2 steroids. - Plan Plan: change antibiotics to levaquin po for 5 days. If leukocytosis improves or comes to normal, may dc antibiotics.
[2017-09-23] MEDS: Ipratropium Neb 0.5 mg/2.5 mL UD HHN SCH ×4 (02:40→14:22)
[2017-09-23] MEDS: Hydrocodone/APAP 10 mg/325 mg Tab PO PRN ×2 (03:58→08:30)
[2017-09-23 06:28] LABS: % BASOPHILS 1.3 % (0.0-2.0); % EOSINOPHILS 0.3 % (0.0-5.0); % LYMPHOCYTES 21.8 % (20.0-50.0); % MONOCYTES 7.6 % (2.0-10.0); BASOPHILE ABSOLUTE 0.2 Th/cumm (0-0.2); HEMATOCRIT 47.7 % (41.0-60); LYMPHOCYTE ABSOLUTE 3.1 Th/cmm (1.5-3.0); MEAN CELL VOLUME 85.3 fl (80-99); MEAN CORPUSCULAR HEMOGLOBIN 28.6 pg (26.0-30.0); MEAN CORPUSCULAR HGB CONC 33.5 pg (28.0-36.0); MONOCYTE ABSOLUTE 1.1 Th/cmm (0.3-1.0); NEUTROPHILE ABSOLUTE 9.7 Th/cmm (1.8-8.0); PLATELET COUNT 234 Th/cmm (150-400); WHITE BLOOD COUNT 14.1 Th/cmm (4.8-10.8)
[2017-09-23] MEDS ORDERED: Levofloxacin 500mg/100mL 500 MG/100 ML BAG IV SCH (09:00)
--- NOTE | 2017-09-23 09:29 | General Progress Note ---
Subjective - Review of Systems Events since last encounter: no change no fever Objective - Results Result Diagrams: 09/23/17 05:50 09/22/17 06:28 Recent Labs: Laboratory Last Values WBC 14.1 Th/cmm (4.8-10.8) H 09/23/17 05:50 RBC 5.60 Mil/cmm (4.30-5.70) 09/23/17 05:50 Hgb 16.0 gm/dL (12-16) 09/23/17 05:50 Hct 47.7 % (41.0-60) 09/23/17 05:50 MCV 85.3 fl (80-99) 09/23/17 05:50 MCH 28.6 pg (26.0-30.0) 09/23/17 05:50 MCHC Differential 33.5 pg (28.0-36.0) 09/23/17 05:50 RDW 15.0 % (11.5-20.0) 09/23/17 05:50 Plt Count 234 Th/cmm (150-400) 09/23/17 05:50 MPV 8.0 fl 09/23/17 05:50 Neutrophils % 69.0 % (40.0-80.0) 09/23/17 05:50 Band Neutrophils % 6 % (0-10) 09/20/17 05:21 Lymphocytes % 21.8 % (20.0-50.0) 09/23/17 05:50 Monocytes % 7.6 % (2.0-10.0) 09/23/17 05:50 Eosinophils % 0.3 % (0.0-5.0) 09/23/17 05:50 Basophils % 1.3 % (0.0-2.0) 09/23/17 05:50 Neutrophils (Manual) 78 % (40-80) 09/20/17 05:21 Lymphocytes 12 % (20-50) L 09/20/17 05:21 Monocytes 4 % (2-10) 09/20/17 05:21 Specimen Source arterial 09/17/17 21:23 Sample Site RB 09/17/17 21:23 pH 7.44 (7.35-7.45) 09/17/17 21:23 pCO2 38.0 mmHg (35.0-45.0) 09/17/17 21:23 pO2 52.0 mmHg (80.0-100.0) L 09/17/17 21: HCO3 26.0 mEq/L (20.0-26.0) 09/17/17: Base Excess 1.7 mEq/L (-3.0-3.0) 09/17/17: O2 Saturation 88.0 % (92.0-100.0) L 09/17/17 21: Guilherme Test Positive 09/17/17 21: Vent Rate N/A 09/17/17 21:23 Inspired O2 21 09/17/17 21: Tidal Volume N/A 09/17/17 21: PEEP N/A 09/17/17 21: Pressure (ins/psv/peep) N/A 09/17/17: Critical Value MM,CRYPTOGRAPHER 09/17/17: Sodium 132 mEq/L (136-145) L 09/22/17 06:28 Potassium 4.3 mEq/L (3.5-5.1) 09/22/17: Chloride 106 mEq/L (98-107) 09/22/17 06: Carbon Dioxide 22.3 mEq/L (21.0-31.0) 09/22/17: Anion Gap 8.0 (7.0-16.0) 09/22/17: BUN 21 mg/dL (7-25) 09/22/17: Creatinine 0.8 mg/dL (0.7-1.3) 09/22/17 06:28 Est GFR ( Amer) > 60.0 ml/min (>90) 09/22/17: Est GFR (Non-Af Amer) > 60.0 ml/min 09/22/17 06:28 BUN/Creatinine Ratio 26.3 09/22/17: Glucose 202 mg/dL (70-105) H 09/22/17:28 Hemoglobin A1c % 5.5 % (4.0-6.0) 09/20/17 06:10 Whole Bld Lactic Acid 1.57 mmol/L (0.60-1.99) 09/17/17 21:55 Calcium 8.9 mg/dL (8.6-10.3) 09/22/17 06:28 Total Bilirubin 0.3 mg/dL (0.3-1.0) 09/22/17 06:28 AST 12 U/L (13-39) L 09/22/17 06:28 ALT 20 U/L (7-52) 09/22/17 06:28 Alkaline Phosphatase 73 U/L (34-104) 09/22/17 06:28 Total Protein 6.5 gm/dL (6.0-8.3) 09/22/17 06:28 Albumin 3.8 gm/dL (4.2-5.5) L 09/22/17 06:28 Globulin 2.7 gm/dL 09/22/17 06:28 Albumin/Globulin Ratio 1.4 (1.0-1.8) 09/22/17 06:28 Influenza A (Rapid) NEG FOR INF A 09/18/17 13:45 Influenza B (Rapid) NEG FOR INF B 09/18/17 13:45 Ur L.pneumophila Ag Negative (Negative) 09/18/17 21:10 - Physical Exam Vitals and I&O: Vital Signs Temp 97.1 F 09/23/17 04:48 Pulse 100 09/23/17 07:10 Resp 20 09/23/17 07:10 BP 117/71 09/23/17 04:48 Pulse Ox 97 09/23/17 07:10 Intake & Output 09/22/17 09/23/17 09/23/17 18:59 06:59 18:59 Intake Total 1000 500 Balance 1000 500 Weight (lbs) 98.203 kg 100.062 kg Intake: Oral 1000 500 Other: # Voids 3 2 # Bowel Movements 1 Stool Characteristics Soft Formed Active Medications: Current Medications Acetaminophen/Hydrocodone Bitart ([place] 10 Mg/325 Mg) 1 tab PO Q4H PRN PRN Reason: Pain (Moderate) Stop: 11/18/17 19:04 Last Admin: 09/23/17 08:30 Dose: 1 tab Levofloxacin (Levaquin Pb) 500 mg in 100 mls @ 100 mls/hr IV Q24HR [facility] Stop: 11/22/17 08:59 Last Admin: 09/23/17 08:33 Dose: 100 mls/hr Ipratropium [place] (Atrovent Neb 0.5mg/2.5ml) 0.5 mg HHN Q4HRT [facility] Stop: 11/17/17 02:59 Last Admin: 09/23/17 07:09 Dose: 0.5 mg Loratadine (Claritin) 10 mg PO DAILY PRN PRN Reason: Allergy Symptoms Stop: 11/17/17 13:55 Oxymetazoline HCl (Afrin) 1 spr NS Q12HR PRN PRN Reason: Nasal Congestion Stop: 10/02/17 13:55 Prednisone (Deltasone) 10 mg PO DAILY [facility] Stop: 11/22/17 08:59 Last Admin: 09/23/17 08:32 Dose: 10 mg
== END 2017-09-23 17:45 | disposition home or self-care (01) | DRG 871 ==
LOC: ER 20:51 → MSI 23:10
PROVIDERS: ADMIT Internal Medicine; ATTEND Internal Medicine
DX: A41.9 Sepsis, unspecified organism (principal); J96.20 Acute and chronic respiratory failure, unspecified whether with hypoxia or hypercapnia; Z89.612 Acquired absence of left leg above knee; E87.1 Hypo-osmolality and hyponatremia; J20.9 Acute bronchitis, unspecified; Z85.72 Personal history of non-Hodgkin lymphomas
CPT/HCPCS: 36415-UA; 36600-90; 71045-TC; 71250-TC; 80053-TC; 82803-TC; 83036-90; 83605; 85007-TC; 85025-TC; 85027-TC; 87449-90; 87804-TC; 90779; 93005; 94640; 94760; J0456; J0696; J1956; J2920; J2930; J7030; Z7610

== ENCOUNTER 2018-06-02 16:27 | Emergency (ER) | payer MEDICARE, MEDICAID ==
[2018-06-02] MEDS ORDERED: Lactated Ringer 1,000 ML IV ONE (16:51)
[2018-06-02 17:15] LABS: % BASOPHILS 0.7 % (0.0-2.0); % EOSINOPHILS 1.1 % (0.0-5.0); % MONOCYTES 6.1 % (2.0-10.0); % NEUTROPHILS 65.1 % (40.0-80.0); BASOPHILE ABSOLUTE 0.1 Th/cumm (0-0.2); EOSINOPHILE ABSOLUTE 0.1 Th/cmm (0.1-0.4); HEMATOCRIT 40.1 % (41.0-60); HEMOGLOBIN 13.8 gm/dL (12-16); LYMPHOCYTE ABSOLUTE 2.4 Th/cmm (1.5-3.0); MEAN CELL VOLUME 84.6 fl (80-99); MEAN CORPUSCULAR HEMOGLOBIN 29.2 pg (26.0-30.0); MEAN CORPUSCULAR HGB CONC 34.5 pg (28.0-36.0); MEAN PLATELET VOLUME 7.5 fl; MONOCYTE ABSOLUTE 0.5 Th/cmm (0.3-1.0); NEUTROPHILE ABSOLUTE 5.7 Th/cmm (1.8-8.0); PLATELET COUNT 348 Th/cmm (150-400); RED BLOOD COUNT 4.74 Mil/cmm (4.30-5.70); WHITE BLOOD COUNT 8.8 Th/cmm (4.8-10.8)
--- NOTE | 2018-06-02 18:16 | ED Physician Chart ---
ED Chief Complaint/HPI - Patient Information Date Seen:: 06/02/18 Time Seen:: 16:41 Chief Complaint:: LUE pain s/p op on 05/30/18 History of Present Illness:: LUE pain s/p op on 05/30/18 Allergies:: Allergies Allergy/AdvReac Type Severity Reaction Status Date / Time No Known Allergies Allergy Verified 09/17/17 21:06 Vitals:: Vital Signs - 8 hr 06/02/18 16:41 Temp 98.4 F HR 106 RR 19 BP 113/68 O2 Sat % 97 Historian:: Patient Review:: Nurse's Note Reviewed ED Review of Systems - Review of Systems General/Constitutional: No fever, No chills, No weight loss, No weakness, No diaphoresis, No edema, No loss of appetite Skin: No skin lesions, No rash, No bruising Head: No headache, No light-headedness Eyes: No loss of vision, No pain, No diplopia ENT: No earache, No nasal drainage, No sore throat, No tinnitus Neck: No neck pain, No swelling, No thyromegaly, No stiffness, No mass noted Cardio Vascular: No chest pain, No palpitations, No PND, No orthopnea, No edema Pulmonary: No SOB, No cough, No sputum, No wheezing GI: No nausea, No vomiting, No diarrhea, No pain, No melena, No hematochezia, No constipation, No hematemesis G/U: No dysuria, No frequency, No hematuria Musculoskeletal: No bone or joint pain, Other (LUE pain) Endocrine: No polyuria, No polydipsia Psychiatric: No prior psych history, No depression, No anxiety, No suicidal ideation, No homicidal ideation, No auditory hallucination, No visual hallucination Hematopoietic: Bruising Allergic/Immuno: No urticaria, No angioedema Neurological: No syncope, No focal symptoms, No weakness, No paresthesia, No headache, No seizure, No dizziness, No confusion, No vertigo ED Past Medical History - Past Medical History Obtainable: Yes Past Medical History: Other (LUE bone graft on 05/30/18; L AKA amputation; chronic pain) Surgical History: other (left above knee amputation) Family Medical History - Family Member Mother History Unknown: Yes Ethnicity: Living Status: Still Living Hx Family Cancer: No Hx Family Coronary Artery Disease: No Hx Family Congestive Heart Failure: No Hx Family Hypertension: No Hx Family Stroke: No Hx Family Diabetes: No Hx Family Seizures: No Hx Family Dementia: No Hx Family AIDS: No Hx Family HIV: No Hx Family COPD: No Hx Family Hepatitis: No Hx Family Psychiatric Problems: No Hx Family Tuberculosis: No ED Physical Exam - Physical Examination General/Constitutional: Awake, Well-developed, well-nourished, Alert, No distress, GCS 15, Non-toxic appearing, Ambulatory Other Gen/Cons comments:: took his multiple pain pills that he takes on a chronic basis before he came in. Head: Atraumatic Eyes: Lids, conjuctiva normal, PERRL, EOMI Other Skin comments:: LUE with intact stables. No s/s of compartment syndrome. Distal NV intact. No s/s of infection. No cellulitis or crepitance. ENMT: External ears, nose nl Neck: Nontender, Full ROM w/o pain, No nuchal rigidity, No stridor Respiratory: Nl effort/Exclusion, Clear to Auscultation, No Wheeze/Rhonchi/Rales Cardio Vascular: RRR, No murmur, gallop, rubs, NL S1 S2 GI: No tenderness/rebounding/guarding, No organomegaly, No hernia, Normal BS's, Nondistended, No mass/bruits, No McBurney tenderness : No CVA tenderness Other Extremities comments:: LUE with intact stables. No s/s of compartment syndrome. Distal NV intact. No s/s of infection. No cellulitis or crepitance. L AKA (old) Neuro/Psych: Alert/oriented, Normal sensory exam, Normal motor strength, Judgement/insight normal, Mood normal, No focal deficits Misc: Normal back, No paraspinal tenderness ED Labs/Radiology/EKG Results - Lab Results Results: Laboratory Tests 06/02/18 17:05 WBC 8.8 RBC 4.74 Hgb 13.8 Hct 40.1 L MCV 84.6 MCH 29.2 MCHC Differential 34.5 RDW 14.0 Plt Count 348 MPV 7.5 Neutrophils % 65.1 Lymphocytes % 27.0 Monocytes % 6.1 Eosinophils % 1.1 Basophils % 0.7 ED Assessment - Assessment General Assessment: ultrasound of the LUE reveals a hematoma which measures 7.4 cm x 3.5 x 5.8 cm. There is no color flow or pusatile changes seen within the left upper arm. called and spoke with Dr. Maik Golden who is covering for Dr. Rolly Cruz from orthopedics. Dr. Cruz is out of town according to Dr. Maik Golden. I conveyed to Dr. Golden that the patient has a hematoma which measures 7.4 cm x 3.5 x 5.8 cm. There is no color flow or pusatile changes seen within the left upper arm. Dr. Maik Golden said that the patient did not need to be seen tonight and that he could call the office tomorrow morning to make an appointment to see one of Dr. Cruz's partners in his office. The office phone number to call is [phone]. ED Septic Shock - . Is Septic Shock (SBP<90, OR Lactate>4 mmol\L) present?: No - <6hrs of presentation: Vital Signs: Vital Signs - 8 hr 06/02/18 16:41 Temp 98.4 F HR 106 RR 19 BP 113/68 O2 Sat % 97 ED Reassessment (Disposition) - Reassessment Reassessment Condition:: Improved - Diagnosis Diagnosis:: Left upper extremity hematoma, postoperative from bone graft surgery on . Call Dr. Cruz's office at [phone] tomorrow to see - Aftercare/Follow up Instructions Aftercare/Follow-Up Instructions:: Refer to Discharge Instructions - Patient Disposition Discharge/Transfer:: Home Condition at Disposition:: Stable, Improved
--- NOTE | 2018-06-03 08:19 | Diagnostic Imaging Report ---
Left upper extremity ultrasound History: Left upper extremity pain and swelling. Recent surgery of the left upper extremity/biceps region. Comparison: None Technique/procedure: Sonography of the left upper extremity in the area of the biceps muscle was performed in multiple planes. There is a heterogeneous area measuring 7.4 x 3.5 x 5.8 cm reported to be at the incision site. No vascularity of this area. This may be separate from the biceps muscle. IMPRESSION: Indeterminate large heterogeneous area in the region of the surgical incision site of the left upper. Findings are indeterminate. A large postoperative hematoma or seroma cannot be excluded. This is difficult to delineate from the [place] biceps muscle. Please correlate with clinical findings. Consider further assessment with CT or MRI examination.
== END 2018-06-02 18:58 | disposition home or self-care (01) ==
LOC: ER 16:27
DX: S40.022A Contusion of left upper arm, initial encounter (principal); G89.18 Other acute postprocedural pain; M79.602 Pain in left arm; X58.XXXA Exposure to other specified factors, initial encounter; Y93.89 Activity, other specified; Y92.89 Other specified places as the place of occurrence of the external cause; Y99.8 Other external cause status
CPT/HCPCS: 36415-UA; 76881-TC-LT; 85025-TC; Z7502

== ENCOUNTER 2018-08-30 03:04 | Emergency (ER) | payer MEDICARE, MEDICAID ==
--- NOTE | 2018-08-30 03:29 | ED Physician Chart ---
ED Chief Complaint/HPI - Patient Information Date Seen:: 08/30/18 Time Seen:: 03:24 Chief Complaint:: cough History of Present Illness:: 47 yr old male with cough congestion for few days wants abs has been taking cough medicine Allergies:: Allergies Allergy/AdvReac Type Severity Reaction Status Date / Time No Known Allergies Allergy Verified 08/30/18 03:13 Vitals:: Vital Signs - 8 hr 08/30/18 03:05 Temp 98.1 F HR 65 RR 20 BP 105/79 O2 Sat % 96 ED Review of Systems - Review of Systems General/Constitutional: No fever, No chills, No weight loss, No weakness, No diaphoresis, No edema, No loss of appetite Skin: No skin lesions, No rash, No bruising Head: No headache, No light-headedness Eyes: No loss of vision, No pain, No diplopia ENT: No earache, No nasal drainage, No sore throat, No tinnitus Neck: No neck pain, No swelling, No thyromegaly, No stiffness, No mass noted Cardio Vascular: No chest pain, No palpitations, No PND, No orthopnea, No edema Pulmonary: Cough GI: Diarrhea G/U: No dysuria, No frequency, No hematuria Musculoskeletal: No bone or joint pain, No back pain, No muscle pain Endocrine: No polyuria, No polydipsia Psychiatric: No prior psych history, No depression, No anxiety, No suicidal ideation Hematopoietic: No bruising, No lymphadenopathy Allergic/Immuno: No urticaria, No angioedema Neurological: No syncope, No focal symptoms, No weakness, No paresthesia, No headache, No seizure, No dizziness, No confusion, No vertigo ED Past Medical History - Past Medical History Past Medical History: Other (non hodkins lymphoma in remission) Surgical History: other (lt aka) Family Medical History - Family Member Mother History Unknown: Yes Ethnicity: Living Status: Still Living Hx Family Cancer: No Hx Family Coronary Artery Disease: No Hx Family Congestive Heart Failure: No Hx Family Hypertension: No Hx Family Stroke: No Hx Family Diabetes: No Hx Family Seizures: No Hx Family Dementia: No Hx Family AIDS: No Hx Family HIV: No Hx Family COPD: No Hx Family Hepatitis: No Hx Family Psychiatric Problems: No Hx Family Tuberculosis: No ED Physical Exam - Physical Examination General/Constitutional: Awake, Well-developed, well-nourished, Alert, No distress, GCS 15, Non-toxic appearing, Ambulatory Head: Atraumatic Eyes: Lids, conjuctiva normal, PERRL, EOMI Skin: Nl inspection, No rash, No skin lesions, No ecchymosis, Well hydrated, No lymphadenopathy ENMT: External ears, nose nl, Nasal exam nl, Lips, teeth, gums nl Neck: Nontender, No JVD, No nuchal rigidity, No bruit, No mass, No stridor Respiratory: Nl effort/Exclusion, Clear to Auscultation, No Wheeze/Rhonchi/Rales Cardio Vascular: RRR, No murmur, gallop, rubs, NL S1 S2 GI: No tenderness/rebounding/guarding, No organomegaly, No hernia, Normal BS's, Nondistended, No mass/bruits, No McBurney tenderness : No CVA tenderness Extremities: No tenderness or effusion, No edema Other Extremities comments:: lt aka Neuro/Psych: Alert/oriented, DTR's symmetric, Normal sensory exam, Normal motor strength, Judgement/insight normal, Mood normal, Normal gait, No focal deficits Misc: Normal back, No paraspinal tenderness ED Assessment - Assessment General Assessment: bronchitis ED Septic Shock - . Is Septic Shock (SBP<90, OR Lactate>4 mmol\L) present?: No - <6hrs of presentation: Vital Signs: Vital Signs - 8 hr 08/30/18 03:05 Temp 98.1 F HR 65 RR 20 BP 105/79 O2 Sat % 96 ED Reassessment (Disposition) - Reassessment Reassessment:: bronchitis - Diagnosis Diagnosis:: bronchitis - Aftercare/Follow up Instructions Medication Prescribed:: zpack - Patient Disposition Discharge/Transfer:: Home Condition at Disposition:: Stable
== END 2018-08-30 03:45 | disposition home or self-care (01) ==
LOC: ER 03:04
DX: J40 Bronchitis, not specified as acute or chronic (principal)
CPT/HCPCS: Z7502

== ENCOUNTER 2019-01-21 13:14 | Inpatient (IN) | payer MEDICARE, MEDICAID ==
--- NOTE | 2019-01-21 15:13 | ED Physician Chart ---
ED Chief Complaint/HPI - Patient Information Date Seen:: 01/21/19 Time Seen:: 13:25 Chief Complaint:: Left Thigh Pain History of Present Illness:: onset x 3 days of Left LE pain, paresthesias, and weakness; pt denies trauma, H/ As, S/T, neck pain, C/P, SOB, Abd. Pain, A/N/V/D/C, fever, chills, or urinary s/ s; pt's last tetanus shot: < 5 year; UTD; Hx of chronic pain syndrome; S/P left BKA Allergies:: Allergies Allergy/AdvReac Type Severity Reaction Status Date / Time No Known Allergies Allergy Verified 08/30/18 03:13 Vitals:: Vital Signs - 8 hr 01/21/19 01/21/19 01/21/19 13:25 14:03 14:45 Temp 97.9 F 97.9 F 97.9 F HR 124 115 115 RR 22 21 21 BP 125/83 127/73 127/73 O2 Sat % 95 95 95 Historian:: Patient, Friend Review:: Nurse's Note Reviewed, Old Chart Reviewed ED Review of Systems - Review of Systems General/Constitutional: No fever, No chills, No weight loss, Weakness, No diaphoresis, No edema, No loss of appetite Skin: No skin lesions, No rash, No bruising Head: No headache, No light-headedness Eyes: No loss of vision, No pain, No diplopia ENT: No earache, No nasal drainage, No sore throat, No tinnitus Neck: No neck pain, No swelling, No thyromegaly, No stiffness, No mass noted Cardio Vascular: No chest pain, No palpitations, No PND, No orthopnea, No edema Pulmonary: No SOB, No cough, No sputum, No wheezing GI: No nausea, No vomiting, No diarrhea, No pain, No melena, No hematochezia, No constipation, No hematemesis G/U: No dysuria, No frequency, No hematuria, No nacturia Musculoskeletal: No bone or joint pain, No back pain, Muscle pain Endocrine: No polyuria, No polydipsia Psychiatric: No prior psych history, No depression, No anxiety, No suicidal ideation, No homicidal ideation, No auditory hallucination, No visual hallucination Hematopoietic: No bruising, No lymphadenopathy Allergic/Immuno: No urticaria, No angioedema Neurological: No syncope, No focal symptoms, Weakness, Paresthesia, No headache , No seizure, No dizziness, No confusion, No vertigo ED Past Medical History - Past Medical History Obtainable: Yes Past Medical History: DM Family History: Diabetes Mel[place] Social History: Smoker, No Alcohol, No Drug Use, Single Surgical History: other (left BKA) Psychiatricy History: None Medication: Reviewed Family Medical History - Family Member Mother History Unknown: Yes Ethnicity: Living Status: Still Living Hx Family Cancer: No Hx Family Coronary Artery Disease: No Hx Family Congestive Heart Failure: No Hx Family Hypertension: No Hx Family Stroke: No Hx Family Diabetes: No Hx Family Seizures: No Hx Family Dementia: No Hx Family AIDS: No Hx Family HIV: No Hx Family COPD: No Hx Family Hepatitis: No Hx Family Psychiatric Problems: No Hx Family Tuberculosis: No Other Medical History: NO MED PROBLEMS ED Physical Exam - Physical Examination General/Constitutional: Awake, Well-developed, well-nourished, Alert, No distress, GCS 15, Non-toxic appearing, Ambulatory Head: Atraumatic Eyes: Lids, conjuctiva normal, PERRL, EOMI Skin: Nl inspection, No rash, No skin lesions, No ecchymosis, Well hydrated, No lymphadenopathy ENMT: External ears, nose nl, TM canals nl, Nasal exam nl, Lips, teeth, gums nl , Oropharynx nl, Tonsils nl Neck: Nontender, Full ROM w/o pain, No JVD, No nuchal rigidity, No bruit, No mass, No stridor Respiratory: Nl effort/Exclusion, Clear to Auscultation, No Wheeze/Rhonchi/Rales Cardio Vascular: RRR, No murmur, gallop, rubs, NL S1 S2, Carotid/Femoral/Distal pulses equal bilaterally GI: No tenderness/rebounding/guarding, No organomegaly, No hernia, Normal BS's, Nondistended, No mass/bruits, No McBurney tenderness : No CVA tenderness Extremities: No tenderness or effusion, Full ROM, normal strength in all extremities, No edema, Normal digits & nails Other Extremities comments:: S/P: BKA Neuro/Psych: Alert/oriented, DTR's symmetric, Normal sensory exam, Normal motor strength, Judgement/insight normal, Mood normal, Normal gait, No focal deficits Misc: Normal back, No paraspinal tenderness ED Labs/Radiology/EKG Results - Lab Results Comments:: Reviewed ED Septic Shock - . Is Septic Shock (SBP<90, OR Lactate>4 mmol\L) present?: No - <6hrs of presentation: Vital Signs: Vital Signs - 8 hr 01/21/19 01/21/19 01/21/19 13:25 14:03 14:45 Temp 97.9 F 97.9 F 97.9 F HR 124 115 115 RR 22 21 21 BP 125/83 127/73 127/73 O2 Sat % 95 95 95 ED Reassessment (Disposition) - Reassessment Reassessment Condition:: Improved - Diagnosis Diagnosis:: S/P: BKA; Chronic Pain Syndrome; Neuropathy; Intractable Pain; Sciatica; Neuritis; Tachycardia - Aftercare/Follow up Instructions Aftercare/Follow-Up Instructions:: Counseled pt regarding lab results/diagnosis & need follow up, Counseled pt & family regarding lab results/diagnosis & need follow up - Patient Disposition Discharge/Transfer:: Acute Care w/in this hosp Accepting Physician:: Dr. Encarnacion Time Called:: 1630 Time Responded:: 14:30 Admitted to:: Telemetry Spoke to:: Dr. Encarnacion Admitting Medical Physician:: Dr. Encarnacion Condition at Disposition:: Stable, Improved
[2019-01-21] MEDS ORDERED: Sodium Chloride 0.9% 1,000 ML IV ONE (15:15)
[2019-01-21 15:44] LABS: % BASOPHILS 0.3 % (0.0-2.0); % EOSINOPHILS 2.1 % (0.0-5.0); % LYMPHOCYTES 11.9 % (20.0-50.0); % NEUTROPHILS 78.7 % (40.0-80.0); EOSINOPHILE ABSOLUTE 0.2 Th/cmm (0.1-0.4); HEMATOCRIT 43.3 % (41.0-60); HEMOGLOBIN 14.4 gm/dL (12-16); LYMPHOCYTE ABSOLUTE 0.9 Th/cmm (1.5-3.0); MEAN CELL VOLUME 82.6 fl (80-99); MEAN CORPUSCULAR HEMOGLOBIN 27.5 pg (26.0-30.0); MEAN CORPUSCULAR HGB CONC 33.3 pg (28.0-36.0); MONOCYTE ABSOLUTE 0.5 Th/cmm (0.3-1.0); NEUTROPHILE ABSOLUTE 6.1 Th/cmm (1.8-8.0); PLATELET COUNT 194 Th/cmm (150-400); RED BLOOD COUNT 5.24 Mil/cmm (4.30-5.70); RED CELL DISTRIBUTION WIDTH 14.2 % (11.5-20.0); WHITE BLOOD COUNT 7.7 Th/cmm (4.8-10.8)
[2019-01-21 16:00] LABS: ALB/GLOB RATIO 1.4 (1.0-1.8); ALBUMIN 3.8 gm/dL (4.2-5.5); ALKALINE PHOSPHATASE 112 U/L (34-104); ANION GAP 12.1 (7.0-16.0); BILIRUBIN,TOTAL 0.3 mg/dL (0.3-1.0); BUN - UREA NITROGEN 11 mg/dL (7-25); CALCIUM SERUM 8.8 mg/dL (8.6-10.3); CARBON DIOXIDE 23.9 mEq/L (21.0-31.0); CHLORIDE 105 mEq/L (98-107); GFR AFRICAN-AMERICAN > 60.0 ml/min (>90); GFR NON AFRICAN-AMERICAN > 60.0 ml/min; GLUCOSE 102 mg/dL (70-105); SGOT 39 U/L (13-39); SGPT/ALT 54 U/L (7-52); SODIUM SERUM 137 mEq/L (136-145); TOTAL PROTEIN,SERUM 6.5 gm/dL (6.0-8.3)
[2019-01-21] MEDS: HYDROmorphone 2 mg/mL 1mL Vial IVP PRN (16:09)
[2019-01-21 19:43] VITALS: BP 103/74
[2019-01-21] MEDS: HYDROmorphone 1 mg/mL 1mL Syr IVP PRN (22:16)
[2019-01-22] MEDS: HYDROmorphone 1 mg/mL 1mL Syr IVP PRN ×2 (02:26→06:26)
[2019-01-22 03:13] LABS: URINE SOURCE CLEAN C
[2019-01-22 03:15] LABS: URINE BILIRUBIN NEGATIVE (NEGATIVE); URINE BLOOD NEGATIVE (NEGATIVE); URINE GLUCOSE (UA) NEGATIVE (NEGATIVE); URINE KETONE NEGATIVE (NEGATIVE); URINE LEUKOCYTE ESTERASE NEGATIVE (NEGATIVE); URINE NITRATE NEGATIVE (NEGATIVE); URINE PROTEIN NEGATIVE (NEGATIVE); URINE UROBILINOGEN 0.2 E.U./dL (0.2 - 1.0)
[2019-01-22 03:26] LABS: URINE CLARITY CLEAR (CLEAR); URINE COLOR YELLOW; URINE MICROSCOPIC INDICATED? NO
--- NOTE | 2019-01-22 13:41 | History & Physical ---
ADMIT DATE: 01/22/2019 DICTATED FOR: Dr. Encarnacion. CHIEF COMPLAINT: Phantom pain. HISTORY OF PRESENT ILLNESS: This is a 48-year-old male who is admitted to the Med/Surg Unit due to a 3-day history of left stump pain. The patient states that he is status post amputation 2 years ago. The patient states that ever since that he has had this he has been having unbearable pain. For this reason, the patient is admitted. PAST MEDICAL HISTORY: Diabetes. FAMILY HISTORY: Noncontributory. SOCIAL HISTORY: The patient denies any alcohol. The patient is a former smoker. SURGICAL HISTORY: Left BKA 2 years ago. MEDICATIONS: See medication list. REVIEW OF SYSTEMS: GENERAL: Denies any fever or chills. CARDIOVASCULAR: Denies chest pain. RESPIRATORY: Denies shortness of breath. GASTROINTESTINAL: Denies nausea, vomiting, abdominal pain. GENITOURINARY: Denies increased frequency or dysuria. NEUROLOGIC: Denies headache, seizure or syncope. All systems reviewed and negative. PHYSICAL EXAMINATION: GENERAL: The patient is a well-developed, well-nourished, in no apparent distress. VITAL SIGNS: Temperature 99.3, heart rate 102, blood pressure 103/66, respirations 19, O2 97%. HEENT: Head normocephalic, atraumatic. NECK: Supple. No mass. LUNGS: Clear bilaterally. HEART: Regular rhythm. ABDOMEN: Soft, nontender. LABORATORY DATA: WBC 7.7, H and H 14.4 and 43.3, platelet of 194. Sodium 137, potassium 4.0, chloride 105, BUN 11, creatinine 1.0, albumin at 3.8. Urinalysis negative for any UTI. ASSESSMENT: Neuritis, chronic pain syndrome, history of diabetes, generalized weakness, status post left below knee amputation 2 years ago. PLAN: The patient to be admitted to Med/Surg Unit. Pain management and wound care consult as well. We will continue to monitor this patient. If no further pain, the patient to be discharged in a.m. JOB# [id number]
[2019-01-22] MEDS: HYDROmorphone 2 mg/mL 1mL Vial IVP PRN (21:18)
[2019-01-23 05:04] LABS: HEMOGLOBIN 14.4 gm/dL (12-16); LYMPHOCYTE ABSOLUTE 1.3 Th/cmm (1.5-3.0); MONOCYTE ABSOLUTE 0.6 Th/cmm (0.3-1.0)
[2019-01-23 05:09] LABS: % BASOPHILS 0.2 % (0.0-2.0); % EOSINOPHILS 0.2 % (0.0-5.0); % LYMPHOCYTES 19.3 % (20.0-50.0); % MONOCYTES 9.3 % (2.0-10.0); HEMATOCRIT 42.5 % (41.0-60); MEAN CELL VOLUME 82.9 fl (80-99); MEAN CORPUSCULAR HEMOGLOBIN 28.1 pg (26.0-30.0); MEAN CORPUSCULAR HGB CONC 33.9 pg (28.0-36.0); NEUTROPHILE ABSOLUTE 4.9 Th/cmm (1.8-8.0); PLATELET COUNT 153 Th/cmm (150-400); RED BLOOD COUNT 5.12 Mil/cmm (4.30-5.70); WHITE BLOOD COUNT 6.8 Th/cmm (4.8-10.8)
[2019-01-23] MEDS: HYDROmorphone 2 mg/mL 1mL Vial IVP PRN ×3 (05:22→23:49)
[2019-01-23 05:31] LABS: ANION GAP 12.5 (7.0-16.0); BUN - UREA NITROGEN 9 mg/dL (7-25); CALCIUM SERUM 8.7 mg/dL (8.6-10.3); CARBON DIOXIDE 23.4 mEq/L (21.0-31.0); CHLORIDE 102 mEq/L (98-107); GFR AFRICAN-AMERICAN > 60.0 ml/min (>90); GFR NON AFRICAN-AMERICAN > 60.0 ml/min; GLUCOSE 188 mg/dL (70-105); POTASSIUM SERUM 3.9 mEq/L (3.5-5.1); SODIUM SERUM 134 mEq/L (136-145)
--- NOTE | 2019-01-23 17:26 | Internal Medicine Prog Note ---
Internal Medicine Subjective - Subjective Service Date: 01/23/19 Patient seen and examined:: with staff Patient is:: awake Per staff patient has:: tolerating meds Internal Medicine Objective - Results Result Diagrams: 01/23/19 04:35 01/23/19 04:35 Recent Labs: Laboratory Last Values WBC 6.8 Th/cmm (4.8-10.8) 01/23/19 04:35 RBC 5.12 Mil/cmm (4.30-5.70) 01/23/19 04:35 Hgb 14.4 gm/dL (12-16) 01/23/19 04:35 Hct 42.5 % (41.0-60) 01/23/19 04:35 MCV 82.9 fl (80-99) 01/23/19 04:35 MCH 28.1 pg (26.0-30.0) 01/23/19 04:35 MCHC Differential 33.9 pg (28.0-36.0) 01/23/19 04:35 RDW 14.0 % (11.5-20.0) 01/23/19 04:35 Plt Count 153 Th/cmm (150-400) 01/23/19 04:35 MPV 8.6 fl 01/23/19 04:35 Neutrophils % 71.0 % (40.0-80.0) 01/23/19 04:35 Lymphocytes % 19.3 % (20.0-50.0) L 01/23/19 04:35 Monocytes % 9.3 % (2.0-10.0) 01/23/19 04:35 Eosinophils % 0.2 % (0.0-5.0) 01/23/19 04:35 Basophils % 0.2 % (0.0-2.0) 01/23/19 04:35 Sodium 134 mEq/L (136-145) L 01/23/19 04:35 Potassium 3.9 mEq/L (3.5-5.1) 01/23/19 04:35 Chloride 102 mEq/L (98-107) 01/23/19 04:35 Carbon Dioxide 23.4 mEq/L (21.0-31.0) 01/23/19 04:35 Anion Gap 12.5 (7.0-16.0) 01/23/19 04:35 BUN 9 mg/dL (7-25) 01/23/19 04:35 Creatinine 1.0 mg/dL (0.7-1.3) 01/23/19 04:35 Est GFR ( Amer) > 60.0 ml/min (>90) 01/23/19 04:35 Est GFR (Non-Af Amer) > 60.0 ml/min 01/23/19 04:35 BUN/Creatinine Ratio 9.0 01/23/19 04:35 Glucose 188 mg/dL (70-105) H 01/23/19 04:35 POC Glucose 107 MG/DL (70 - 105) H 01/21/19 16:19 Calcium 8.7 mg/dL (8.6-10.3) 01/23/19 04:35 Total Bilirubin 0.3 mg/dL (0.3-1.0) 01/21/19 15:35 AST 39 U/L (13-39) 01/21/19 15:35 ALT 54 U/L (7-52) H 01/21/19 15:35 Alkaline Phosphatase 112 U/L (34-104) H 01/21/19 15:35 Troponin I < 0.01 ng/mL (0.01-0.05) L 01/21/19 15:35 Total Protein 6.5 gm/dL (6.0-8.3) 01/21/19 15:35 Albumin 3.8 gm/dL (4.2-5.5) L 01/21/19 15:35 Globulin 2.7 gm/dL 01/21/19 15:35 Albumin/Globulin Ratio 1.4 (1.0-1.8) 01/21/19 15:35 Urine Source CLEAN C 01/22/19 02:42 Urine Color YELLOW 01/22/19 02:42 Urine Clarity CLEAR (CLEAR) 01/22/19 02:42 Urine pH 6.0 (4.6 - 8.0) 01/22/19 02:42 Ur Specific [place] 1.015 (1.005-1.030) 01/22/19 02:42 Urine Protein NEGATIVE mg/dL (NEGATIVE) 01/22/19 02:42 Urine Glucose (UA) NEGATIVE mg/dL (NEGATIVE) 01/22/19 02:42 Urine Ketones NEGATIVE mg/dL (NEGATIVE) 01/22/19 02:42 Urine Blood NEGATIVE (NEGATIVE) 01/22/19 02:42 Urine Nitrate NEGATIVE (NEGATIVE) 01/22/19 02:42 Urine Bilirubin NEGATIVE (NEGATIVE) 01/22/19 02:42 Urine Urobilinogen 0.2 E.U./dL (0.2 - 1.0) 01/22/19 02:42 Ur Leukocyte Esterase NEGATIVE (NEGATIVE) 01/22/19 02:42 - Physical Exam Vitals and I&O: Vital Signs Temp 100.1 F 01/23/19 16:00 Pulse 109 01/23/19 16:00 Resp 18 01/23/19 16:00 BP 103/65 01/23/19 16:00 Pulse Ox 96 01/23/19 16:00 Intake & Output 01/22/19 01/23/19 01/23/19 18:59 06:59 18:59 Intake Total 720 400 Output Total 600 1000 Balance 120 -600 Weight (lbs) 200 lb 215 lb Intake: Oral 720 400 Output: Urine 600 1000 Other: # Voids 2 Weight Source Bedscale Estimated Active Medications: Current Medications Acetaminophen (Tylenol) 325 mg PO Q6H PRN PRN Reason: Fever > 101 Stop: 03/23/19 12:43 Last Admin: 01/23/19 05:20 Dose: 325 mg Hydromorphone HCl (Dilaudid) 1 mg IVP Q4HR PRN PRN Reason: Pain (Moderate) Stop: 03/22/19 15:22 Last Admin: 01/22/19 06:26 Dose: 1 mg Hydromorphone HCl (Dilaudid) 2 mg IVP Q4HR PRN PRN Reason: Pain (Severe) Stop: 03/22/19 15:22 Last Admin: 01/23/19 05:22 Dose: 2 mg Ondansetron HCl (Zofran) 4 mg IV Q6H PRN PRN Reason: Nausea / Vomiting Stop: 03/22/19 15:23 General: alert HEENT: NC/AT, PERRLA Neck: Supple Lungs: CTAB Cardiovascular: RRR Abdomen: soft, non-tender, non-distended Extremities: excoriation Neurological: unable to follow command Internal Medicine Assmt/Plan - Assessment Assessment: neuritis chronic pain hx dm generalized weakness left bka anxiety - Plan Plan: prn ativan pain mgmt cpm
[2019-01-24] MEDS: HYDROmorphone 2 mg/mL 1mL Vial IVP PRN ×5 (04:05→23:55)
[2019-01-24 05:40] LABS: OPIATES (MORPHINE) QUAL. URINE POSITIVE (NEGATIVE)
[2019-01-24 05:41] LABS: AMPHETAMINE URINE NEGATIVE (NEGATIVE); BARBITURATES URINE NEGATIVE (NEGATIVE); BENZODIAZEPINES QUAL URINE POSITIVE (NEGATIVE); CANNABINOID THC NEGATIVE (NEGATIVE); COCAINE METABOLITE QUAL URINE NEGATIVE (NEGATIVE); METHADONE URINE NEGATIVE (NEGATIVE); METHAMPHETAMINES QUAL URINE NEGATIVE (NEGATIVE); PHENCYCLIDINE (PCP) URINE NEGATIVE (NEGATIVE); TRICYCLICS (TCA) QUAL. URINE NEGATIVE (NEGATIVE)
[2019-01-24 08:05] LABS: A1C 6.6 % (4.8-5.6)
--- NOTE | 2019-01-24 12:21 | Progress Notes ---
DATE: 01/24/2019 SUBJECTIVE: The patient was seen in his room. The patient is asleep. Provider trying to interview the patient, but the patient appears to be drowsy and does not want to have a discussion with the provider. Otherwise, the patient appears to be in no acute distress. No other issue or episodes reported from staff. OBJECTIVE: VITAL SIGNS: Temperature 99.2, heart rate 66, blood pressure 98/65, respirations of 20, and 98% on room air. HEENT: Head is atraumatic and normocephalic. Eyes: Bilateral conjunctivae are clear. Bilateral pupils are equally round and reactive. NECK: Supple. No JVD. CARDIOVASCULAR: S1, S2, without murmur. PULMONARY: Clear to auscultation. GASTROINTESTINAL: Soft and nontender without guarding. Positive bowel sounds. MUSCULOSKELETAL: No clubbing. No cyanosis. Positive left below knee amputation. ASSESSMENT: 1. Chronic pain syndrome. 2. Left below knee amputation. 3. Anxiety. 4. History of diabetes. PLAN: We will continue pain management as needed. We may initiate the discharge planning. Treatment plans were discussed with the patient's nurse. Treatment plans were discussed with Dr. Encarnacion. JOB# [id number]
--- NOTE | 2019-01-25 12:55 | Internal Medicine Prog Note ---
Internal Medicine Subjective - Subjective Patient is:: awake, verbal, in bed, talking Patient Complaints of:: other (reports felt anxious overnight and received anti- anxiety med) Per staff patient has:: no adverse event, no episodes of fall, tolerating meds Internal Medicine Objective - Results Result Diagrams: 01/23/19 04:35 01/23/19 04:35 Recent Labs: Laboratory Last Values WBC 6.8 Th/cmm (4.8-10.8) 01/23/19 04:35 RBC 5.12 Mil/cmm (4.30-5.70) 01/23/19 04:35 Hgb 14.4 gm/dL (12-16) 01/23/19 04:35 Hct 42.5 % (41.0-60) 01/23/19 04:35 MCV 82.9 fl (80-99) 01/23/19 04:35 MCH 28.1 pg (26.0-30.0) 01/23/19 04:35 MCHC Differential 33.9 pg (28.0-36.0) 01/23/19 04:35 RDW 14.0 % (11.5-20.0) 01/23/19 04:35 Plt Count 153 Th/cmm (150-400) 01/23/19 04:35 MPV 8.6 fl 01/23/19 04:35 Neutrophils % 71.0 % (40.0-80.0) 01/23/19 04:35 Lymphocytes % 19.3 % (20.0-50.0) L 01/23/19 04:35 Monocytes % 9.3 % (2.0-10.0) 01/23/19 04:35 Eosinophils % 0.2 % (0.0-5.0) 01/23/19 04:35 Basophils % 0.2 % (0.0-2.0) 01/23/19 04:35 Sodium 134 mEq/L (136-145) L 01/23/19 04:35 Potassium 3.9 mEq/L (3.5-5.1) 01/23/19 04:35 Chloride 102 mEq/L (98-107) 01/23/19 04:35 Carbon Dioxide 23.4 mEq/L (21.0-31.0) 01/23/19 04:35 Anion Gap 12.5 (7.0-16.0) 01/23/19 04:35 BUN 9 mg/dL (7-25) 01/23/19 04:35 Creatinine 1.0 mg/dL (0.7-1.3) 01/23/19 04:35 Est GFR ( Amer) > 60.0 ml/min (>90) 01/23/19 04:35 Est GFR (Non-Af Amer) > 60.0 ml/min 01/23/19 04:35 BUN/Creatinine Ratio 9.0 01/23/19 04:35 Glucose 188 mg/dL (70-105) H 01/23/19 04:35 POC Glucose 107 MG/DL (70 - 105) H 01/21/19 16:19 Calcium 8.7 mg/dL (8.6-10.3) 01/23/19 04:35 Total Bilirubin 0.3 mg/dL (0.3-1.0) 01/21/19 15:35 AST 39 U/L (13-39) 01/21/19 15:35 ALT 54 U/L (7-52) H 01/21/19 15:35 Alkaline Phosphatase 112 U/L (34-104) H 01/21/19 15:35 Troponin I < 0.01 ng/mL (0.01-0.05) L 01/21/19 15:35 Total Protein 6.5 gm/dL (6.0-8.3) 01/21/19 15:35 Albumin 3.8 gm/dL (4.2-5.5) L 01/21/19 15:35 Globulin 2.7 gm/dL 01/21/19 15:35 Albumin/Globulin Ratio 1.4 (1.0-1.8) 01/21/19 15:35 Urine Source CLEAN C 01/22/19 02:42 Urine Color YELLOW 01/22/19 02:42 Urine Clarity CLEAR (CLEAR) 01/22/19 02:42 Urine pH 6.0 (4.6 - 8.0) 01/22/19 02:42 Ur Specific [place] 1.015 (1.005-1.030) 01/22/19 02:42 Urine Protein NEGATIVE mg/dL (NEGATIVE) 01/22/19 02:42 Urine Glucose (UA) NEGATIVE mg/dL (NEGATIVE) 01/22/19 02:42 Urine Ketones NEGATIVE mg/dL (NEGATIVE) 01/22/19 02:42 Urine Blood NEGATIVE (NEGATIVE) 01/22/19 02:42 Urine Nitrate NEGATIVE (NEGATIVE) 01/22/19 02:42 Urine Bilirubin NEGATIVE (NEGATIVE) 01/22/19 02:42 Urine Urobilinogen 0.2 E.U./dL (0.2 - 1.0) 01/22/19 02:42 Ur Leukocyte Esterase NEGATIVE (NEGATIVE) 01/22/19 02:42 Urine Opiates Screen POSITIVE (NEGATIVE) H 01/24/19 03:50 Urine Methadone Screen NEGATIVE (NEGATIVE) 01/24/19 03:50 Ur Barbiturates Screen NEGATIVE (NEGATIVE) 01/24/19 03:50 Ur Tricyclics Screen NEGATIVE (NEGATIVE) 01/24/19 03:50 Ur Phencyclidine Scrn NEGATIVE (NEGATIVE) 01/24/19 03:50 Amphetamines Screen NEGATIVE (NEGATIVE) 01/24/19 03:50 U Methamphetamines Scrn NEGATIVE (NEGATIVE) 01/24/19 03:50 U Benzodiazepines Scrn POSITIVE (NEGATIVE) H 01/24/19 03:50 U Cocaine Metab Screen NEGATIVE (NEGATIVE) 01/24/19 03:50 U Cannabinoids Screen NEGATIVE (NEGATIVE) 01/24/19 03:50 - Physical Exam Vitals and I&O: Vital Signs Temp 100.5 F 01/25/19 12:00 Pulse 109 01/25/19 12:00 Resp 18 01/25/19 12:00 BP 119/87 01/25/19 12:00 Pulse Ox 97 01/25/19 12:00 Intake & Output 01/24/19 01/25/19 01/25/19 18:59 06:59 18:59 Intake Total 1000 400 Output Total 600 Balance 1000 -200 Weight (lbs) 215 lb 215 lb Intake: Oral 1000 400 Output: Urine 600 Other: # Voids 4 # Bowel Movements 0 Weight Source Bedscale Bedscale Active Medications: Current Medications Acetaminophen (Tylenol) 325 mg PO Q6H PRN PRN Reason: Fever > 101 Stop: 03/23/19 12:43 Last Admin: 01/23/19 05:20 Dose: 325 mg Alprazolam (Xanax) 0.25 mg PO Q8HR PRN; Protocol PRN Reason: Anxiety Stop: 03/24/19 17:26 Last Admin: 01/24/19 14:11 Dose: 0.25 mg Hydromorphone HCl (Dilaudid) 1 mg IVP Q4HR PRN PRN Reason: Pain (Moderate) Stop: 03/22/19 15:22 Last Admin: 01/22/19 06:26 Dose: 1 mg Hydromorphone HCl (Dilaudid) 2 mg IVP Q4HR PRN PRN Reason: Pain (Severe) Stop: 03/22/19 15:22 Last Admin: 01/24/19 23:55 Dose: 2 mg Ondansetron HCl (Zofran) 4 mg IV Q6H PRN PRN Reason: Nausea / Vomiting Stop: 03/22/19 15:23 Last Admin: 01/25/19 05:42 Dose: 4 mg General: alert, NAD HEENT: NC/AT, PERRLA, EOMI Neck: Supple, No JVD Lungs: CTAB Cardiovascular: RRR, Normal S1, Normal S2 Abdomen: soft, non-tender, non-distended Extremities: excoriation, other (L BKA) Neurological: alert Internal Medicine Assmt/Plan - Assessment Assessment: Chronic pain syndrome Neuritis Generalized weakness L BKA Anxiety Hx DMs Urine tox +opiates, + benzo - Plan Plan: Continue current treatment plan Continue to monitor VS and I&O Pain management as needed Dispo planning with interdisciplinary team Fall Precaution
[2019-01-25] MEDS: Sodium Chloride 0.45% 1,000 ML IV SCH (20:17)
[2019-01-25] MEDS: Guaifenesin DM 10 ML UDC PO SCH (20:26)
[2019-01-26] MEDS: Guaifenesin DM 10 ML UDC PO SCH ×2 (04:09→13:18)
[2019-01-26] MEDS: Sodium Chloride 0.45% 1,000 ML IV SCH (04:10)
--- NOTE | 2019-01-26 11:01 | Internal Medicine Prog Note ---
Internal Medicine Subjective - Subjective Service Date: 01/26/19 Patient seen and examined:: with staff Patient is:: awake, verbal, in bed, talking Patient Complaints of:: other (reports felt anxious overnight and received anti- anxiety med) Per staff patient has:: no adverse event, no episodes of fall, tolerating meds Internal Medicine Objective - Results Result Diagrams: 01/23/19 04:35 01/23/19 04:35 Recent Labs: Laboratory Last Values WBC 6.8 Th/cmm (4.8-10.8) 01/23/19 04:35 RBC 5.12 Mil/cmm (4.30-5.70) 01/23/19 04:35 Hgb 14.4 gm/dL (12-16) 01/23/19 04:35 Hct 42.5 % (41.0-60) 01/23/19 04:35 MCV 82.9 fl (80-99) 01/23/19 04:35 MCH 28.1 pg (26.0-30.0) 01/23/19 04:35 MCHC Differential 33.9 pg (28.0-36.0) 01/23/19 04:35 RDW 14.0 % (11.5-20.0) 01/23/19 04:35 Plt Count 153 Th/cmm (150-400) 01/23/19 04:35 MPV 8.6 fl 01/23/19 04:35 Neutrophils % 71.0 % (40.0-80.0) 01/23/19 04:35 Lymphocytes % 19.3 % (20.0-50.0) L 01/23/19 04:35 Monocytes % 9.3 % (2.0-10.0) 01/23/19 04:35 Eosinophils % 0.2 % (0.0-5.0) 01/23/19 04:35 Basophils % 0.2 % (0.0-2.0) 01/23/19 04:35 Sodium 134 mEq/L (136-145) L 01/23/19 04:35 Potassium 3.9 mEq/L (3.5-5.1) 01/23/19 04:35 Chloride 102 mEq/L (98-107) 01/23/19 04:35 Carbon Dioxide 23.4 mEq/L (21.0-31.0) 01/23/19 04:35 Anion Gap 12.5 (7.0-16.0) 01/23/19 04:35 BUN 9 mg/dL (7-25) 01/23/19 04:35 Creatinine 1.0 mg/dL (0.7-1.3) 01/23/19 04:35 Est GFR ( Amer) > 60.0 ml/min (>90) 01/23/19 04:35 Est GFR (Non-Af Amer) > 60.0 ml/min 01/23/19 04:35 BUN/Creatinine Ratio 9.0 01/23/19 04:35 Glucose 188 mg/dL (70-105) H 01/23/19 04:35 POC Glucose 107 MG/DL (70 - 105) H 01/21/19 16:19 Calcium 8.7 mg/dL (8.6-10.3) 01/23/19 04:35 Total Bilirubin 0.3 mg/dL (0.3-1.0) 01/21/19 15:35 AST 39 U/L (13-39) 01/21/19 15:35 ALT 54 U/L (7-52) H 01/21/19 15:35 Alkaline Phosphatase 112 U/L (34-104) H 01/21/19 15:35 Troponin I < 0.01 ng/mL (0.01-0.05) L 01/21/19 15:35 Total Protein 6.5 gm/dL (6.0-8.3) 01/21/19 15:35 Albumin 3.8 gm/dL (4.2-5.5) L 01/21/19 15:35 Globulin 2.7 gm/dL 01/21/19 15:35 Albumin/Globulin Ratio 1.4 (1.0-1.8) 01/21/19 15:35 Urine Source CLEAN C 01/22/19 02:42 Urine Color YELLOW 01/22/19 02:42 Urine Clarity CLEAR (CLEAR) 01/22/19 02:42 Urine pH 6.0 (4.6 - 8.0) 01/22/19 02:42 Ur Specific [place] 1.015 (1.005-1.030) 01/22/19 02:42 Urine Protein NEGATIVE mg/dL (NEGATIVE) 01/22/19 02:42 Urine Glucose (UA) NEGATIVE mg/dL (NEGATIVE) 01/22/19 02:42 Urine Ketones NEGATIVE mg/dL (NEGATIVE) 01/22/19 02:42 Urine Blood NEGATIVE (NEGATIVE) 01/22/19 02:42 Urine Nitrate NEGATIVE (NEGATIVE) 01/22/19 02:42 Urine Bilirubin NEGATIVE (NEGATIVE) 01/22/19 02:42 Urine Urobilinogen 0.2 E.U./dL (0.2 - 1.0) 01/22/19 02:42 Ur Leukocyte Esterase NEGATIVE (NEGATIVE) 01/22/19 02:42 Urine Opiates Screen POSITIVE (NEGATIVE) H 01/24/19 03:50 Urine Methadone Screen NEGATIVE (NEGATIVE) 01/24/19 03:50 Ur Barbiturates Screen NEGATIVE (NEGATIVE) 01/24/19 03:50 Ur Tricyclics Screen NEGATIVE (NEGATIVE) 01/24/19 03:50 Ur Phencyclidine Scrn NEGATIVE (NEGATIVE) 01/24/19 03:50 Amphetamines Screen NEGATIVE (NEGATIVE) 01/24/19 03:50 U Methamphetamines Scrn NEGATIVE (NEGATIVE) 01/24/19 03:50 U Benzodiazepines Scrn POSITIVE (NEGATIVE) H 01/24/19 03:50 U Cocaine Metab Screen NEGATIVE (NEGATIVE) 01/24/19 03:50 U Cannabinoids Screen NEGATIVE (NEGATIVE) 01/24/19 03:50 - Physical Exam Vitals and I&O: Vital Signs Temp 97.8 F 01/26/19 08:00 Pulse 94 01/26/19 08:00 Resp 18 01/26/19 08:00 BP 95/59 01/26/19 08:00 Pulse Ox 98 01/26/19 08:00 Intake & Output 01/25/19 01/26/19 01/26/19 18:59 06:59 18:59 Intake Total 700 1385.417 Output Total 700 Balance 700 685.417 Weight (lbs) 97.522 kg 97.522 kg Intake: Intake, IV Amount 985.417 Sodium Chloride 0.45% 1, 985.417 000 ml @ 125 mls/hr IV . Q8H [facility] Rx#:[id number] Oral 700 400 Output: Urine 700 Other: # Voids 4 # Bowel Movements 0 Weight Source Bedscale Bedscale Active Medications: Current Medications Acetaminophen (Tylenol) 325 mg PO Q6H PRN PRN Reason: Fever > 101 Stop: 03/23/19 12:43 Last Admin: 01/26/19 04:09 Dose: 325 mg Alprazolam (Xanax) 0.25 mg PO Q8HR PRN; Protocol PRN Reason: Anxiety Stop: 03/24/19 17:26 Last Admin: 01/24/19 14:11 Dose: 0.25 mg Guaifenesin/Dextromethorphan (Robitussin Dm) 10 ml PO Q8HR KATE Stop: 01/28/19 20:59 Last Admin: 01/26/19 04:09 Dose: 10 ml Hydromorphone HCl (Dilaudid) 1 mg IVP Q4HR PRN PRN Reason: Pain (Moderate) Stop: 03/22/19 15:22 Last Admin: 01/22/19 06:26 Dose: 1 mg Hydromorphone HCl (Dilaudid) 2 mg IVP Q4HR PRN PRN Reason: Pain (Severe) Stop: 03/22/19 15:22 Last Admin: 01/24/19 23:55 Dose: 2 mg Ondansetron HCl (Zofran) 4 mg IV Q6H PRN PRN Reason: Nausea / Vomiting Stop: 03/22/19 15:23 Last Admin: 01/26/19 10:22 Dose: 4 mg Physical Exam: Patient c/o weakness and chronic pain. General: alert, NAD HEENT: NC/AT, PERRLA, EOMI Neck: Supple, No JVD Lungs: CTAB Cardiovascular: RRR, Normal S1, Normal S2 Abdomen: soft, non-tender, non-distended Extremities: excoriation, other (L BKA) Neurological: alert Internal Medicine Assmt/Plan - Assessment Assessment: Chronic pain syndrome. Neuritis. Generalized weakness. L BKA. Anxiety. History of Diabetes. Urine Tox + Opiates, + Benzo. - Plan Plan: Continuation of care. Monitor Labs. Continue present meds as directed. Monitor Diet/Nutritional support. Pain Management. Physical therapy. Occupational therapy. Fall precaution, frequent nursing rounds, and as needed restraints to prevent fall. Supportive care. Continue collaborating with consulting specialists, case management and nursing team. Will Monitor patient and continue current treatment plan as ordered. Nutritional Asmnt/Malnutr-PDOC - Dietary Evaluation Malnutrition Findings (Please click <Entered> for more info): see orders.
--- NOTE | 2019-01-27 20:42 | Discharge Summary ---
General Discharge Summary - Discharge Summary Date of Admission: 01/21/19 Admitting Diagnosis: Neuritis, Chronic pain syndrome, History of Diabetes, Generalized weakness. Discharge Date: 01/26/19 Discharge Diagnosis: Neuritis-controlled, Chronic pain syndrome-controlled, History of Diabetes-controlled, Generalized weakness, and S/p Left below the knee amputation x 2 years. Laboratory Findings: see chart. Hospital Course: DISCHARGE SUMMARY Date of Admission is 01/21/2019. Date of Discharge is 01/26/2019. ADMITTING DIAGNOSIS: Neuritis, Chronic pain syndrome, History of Diabetes, Generalized weakness, S/p Left below the knee amputation x 2 years. DISCHARGE DIAGNOSIS (es): Neuritis-controlled, Chronic pain syndrome-controlled, History of Diabetes- controlled, Generalized weakness, S/p Left below the knee amputation x 2 years Patient was admitted to: Med/Surg for the following evaluations and treatment. Hospital Course and Treatment Rendered: IV Antibiotics, Urinalysis, Lab tests, x -ray, Monitor vitals, Supportive care, Fall precaution, Local skin care and wound care and Internal medicine consult. Adjustment of medication: IV Antibiotics. The course of hospitalization was uncomplicated and the course of the treatments was uneventful. CONSULT: Internal medicine consult. Diagnostic Study (ies): X-ray. DISCHARGE CONDITION: Stable. Patient discharged Home. Activity: Resume normal activity as tolerated. Diet: Resume previous diet. Medications: Please see medication reconciliation sheet. I will Follow-up with patient with in x 2 days. Discharge Instructions: Patient/Family instructed on diagnosis, follow-up, and diagnostic testing. Greater than 30 minutes was spent with patient on discharge. Treatment: IV Antibiotics, Urinalysis, Lab tests, x-ray, Monitor vitals, Supportive care, Fall precaution, Local skin care and wound care and Internal medicine consult. Condition at Discharge: Stable Disposition: PT DISCHARGED HOME Home Medications: Home Medication Medication Instructions Recorded Type Lorazepam [Ativan] 0.5 mg PO X1 01/21/19 History Activity: As Tolerated Discharge Diet: Other (see orders.) Consults and Follow-Up: Cece Encarnacion [Courtesy] - Consulting Speciality: Other (Patient will follow up with Internal medicine.) Instructions: Pain, Neuropathic
== END 2019-01-26 13:10 | disposition home or self-care (01) | DRG 74 ==
LOC: ER 13:14 → MSI 14:50
PROVIDERS: ADMIT Internal Medicine; ATTEND Internal Medicine
DX: M79.2 Neuralgia and neuritis, unspecified (principal); G89.4 Chronic pain syndrome; Z89.512 Acquired absence of left leg below knee; R53.1 Weakness; F17.210 Nicotine dependence, cigarettes, uncomplicated; R00.0 Tachycardia, unspecified; E11.40 Type 2 diabetes mellitus with diabetic neuropathy, unspecified; F41.9 Anxiety disorder, unspecified
CPT/HCPCS: 36415-UA; 80048-TC; 80053-TC; 80307; 81003-TC; 82948-90; 83036-90; 84484-TC; 85025-TC; 94760; J1170; J1885; J2405; J2543; J7030; J7040; Z7610